=== PATIENT | female | born 1965 | race Caucasian/White ===

== ENCOUNTER 2019-11-29 20:48 | Emergency (ER) | payer SELFPAY ==
[2019-11-29 20:59] VITALS: BP 91/70; PULSE 82; RESP 16; TEMP 36.3; O2SAT 98; BMI 25.0
--- NOTE | 2019-11-29 21:11 | XR_ITS ---
WS: [id number] CHEST XRAY TECHNIQUE: Portable chest. CLINICAL INFORMATION: cough COMPARISON: February 21, 2019 FINDINGS: Heart: Normal cardiac silhouette. Lungs: Chronic emphysematous changes. No acute pulmonary infiltrates. Bones: Normal visualized bony structures. XR/XR chest 1V portable [id number] IMPRESSION: No acute chest findings
[2019-11-29 21:41] LABS: Basophils # 0.1 10^3/uL (0.0-0.1); Basophils % 0.7 %; Eosinophils # 0.3 10^3/uL (0.0-0.8); Eosinophils % 3.9 %; Hematocrit 33.8 % (37.0-47.0); Hemoglobin 11.1 g/dL (11.5-15.3); Lymphocytes # 3.1 10^3/uL (0.8-4.8); Lymphocytes % 40.7 %; Mean Corpuscular HGB Conc 32.8 g/dL (30.0-36.0); Mean Corpuscular Hemoglobin 29.8 pg (28.0-34.0); Mean Corpuscular Volume 90.6 fL (81-99); Mean Platelet Volume 11.1 fL (7.4-10.4); Monocytes # 0.6 10^3/uL (0.2-0.9); Monocytes % 7.7 %; Neutrophils # 3.6 10^3/uL (1.8-7.7); Neutrophils % 46.7 %; Nucleated Red Blood Cells % 0 %; Platelet Count 273 10^3/cmm (130-400); Red Blood Count 3.73 10^6/uL (4.1-5.3); Red Cell Distribution Width 13.2 % (12.1-15.1); White Blood Count 7.6 10^3/uL (4.0-10.0)
[2019-11-29 21:59] LABS: Alanine Aminotransferase 7 U/L (0-33); Albumin Level 4.5 g/dL (3.5-5.2); Alkaline Phosphatase 86 IU/L (35-105); Anion Gap 19.6 (5-19); Aspartate Amino Transferase 25 U/L (0-32); Blood Urea Nitrogen 31 mg/dL (6-20); Calcium 9.5 mg/Dl (8.6-10.0); Carbon Dioxide 24 mmol/L (22-29); Chloride 95 mmol/L (98-107); Globulin 2.5 g/dL (1.3-4.6); Glomerular Filtration Rate 27.8 mL/min (90-130); Glucose 135 mg/dL (74-109); Lactate (Lactic Acid level) 1.2 mmol/L (0.5-2.2); Potassium 4.6 mmol/L (3.5-5.1); Sodium 134 mmol/L (136-145); Total Bilirubin 0.4 mg/dL (0.15-1.2)
--- NOTE | 2019-11-30 00:26 | ED_ITS ---
HPI - General Adult General: Chief complaint: General Medical Stated complaint: LOW BP Time Seen by Provider: 11/29/19 23:44 History of Present Illness: HPI narrative: Patient complains of feeling weak for the last few days blood pressure is low at home. Came in by EMS. Patient has history of chronic methamphetamine and marijuana abuse. Patient is concerned asking why her blood pressure is low. MD complaint: weakness Onset (ago): day(s) Associated symptoms: Deny chest pain, dyspnea, headache(s), nausea, rash or vomiting Review of Systems General: Reports: 10 or more systems reviewed and unremarkable except in HPI and below (Low blood pressure) Const: Denies: fever, chills or body aches Eyes: Denies: change in vision or blurry vision ENMT: Denies: throat pain or nasal congestion Card: Denies: chest pain or shortness of breath on exertion Resp: Denies: shortness of breath, productive cough or non-productive cough GI: Denies: abdominal pain, nausea or vomiting Musc: Denies: extremity pain Skin/Breast: Denies: rash Neuro: Denies: headache Psych: Denies: anxiety or depression Blair/Lymph: Denies: easy bruising PFSH ED PFSH: Statuses (acute, chronic, etc) shown below reflect problem list status as previously entered and may not be historically accurate Social History Smoking and tobacco status: former smoker Physical Exam Narrative: EXAM NARRATIVE: Patient has etra pirymidial symptoms of sticking her tongue out while talking Const: COMMON NORMALS: no apparent distress, average body habitus and oriented x3 HENMT: COMMON NORMALS: normocephalic HEAD & SCALP: normal to inspection and normocephalic FACE & SINUS: normal facial exam Eye: COMMON NORMALS: conjunctivae normal GENERAL EYE: normal appearance of both eyes CONJUNCTIVA: Yes conjunctivae normal Neck/C-Spine: COMMON NORMALS: no JVD Chest: COMMONS NORMALS: inspection of chest normal Resp: COMMON NORMALS: normal respiratory effort and clear to auscultation bilaterally AUSCULTATION: clear to auscultation bilaterally Cardio: COMMON NORMALS: no JVD, regular rate and regular rhythm RATE: regular rate RHYTHM: regular rhythm GI: COMMON NORMALS: normal to inspection, nondistended, normoactive bowel sounds Extremity: COMMON NORMALS: normal to inspection and full ROM Neuro: COMMON NORMALS: oriented x3 Course Vital Signs: Vital signs: Vital Signs Temperature 97.4 F L 11/29/19 20:59 Pulse Rate 82 11/29/19 20:59 Respiratory Rate 16 11/29/19 20:59 Blood Pressure 91/70 11/29/19 20:59 Pulse Oximetry 98 11/29/19 20:59 [facility] - General Adult Lab Data: Labs: Lab Results 11/29/19 11/29/19 11/29/19 Range/Units 21:25 21:25 21:25 WBC 7.6 (4.0-10.0) 10^3/ uL RBC 3.73 L (4.1-5.3) 10^6/u L Hgb 11.1 L (11.5-15.3) g/dL Hct 33.8 L (37.0-47.0) % MCV 90.6 (81-99) fL MCH 29.8 (28.0-34.0) pg MCHC 32.8 (30.0-36.0) g/dL RDW 13.2 (12.1-15.1) % Plt Count 273 (130-400) 10^3/c mm MPV 11.1 H (7.4-10.4) fL Neut % (Auto) 46.7 % Lymph % (Auto) 40.7 % Burt % (Auto) 7.7 % Eos % (Auto) 3.9 % Baso % (Auto) 0.7 % Neut # (Auto) 3.6 (1.8-7.7) 10^3/u L Lymph # (Auto) 3.1 (0.8-4.8) 10^3/u L Burt # (Auto) 0.6 (0.2-0.9) 10^3/u L Eos # (Auto) 0.3 (0.0-0.8) 10^3/u L Baso # (Auto) 0.1 (0.0-0.1) 10^3/u L Nucleated RBC % (a uto) 0 % Nucleated RBCs # 0.0 /100WBC Sodium 134 L (136-145) mmol/L Potassium 4.6 (3.5-5.1) mmol/L Chloride 95 L (98-107) mmol/L Carbon Dioxide 24 (22-29) mmol/L Anion Gap 19.6 H (5-19) BUN 31 H (6-20) mg/dL Creatinine 1.9 H (0.5-0.9) mg/dL GFR Calculation 27.8 L (90-130) mL/min Glucose 135 H (74-109) mg/dL Lactate 1.2 (0.5-2.2) mmol/L Calcium 9.5 (8.6-10.0) mg/Dl Total Bilirubin 0.4 (0.15-1.2) mg/dL AST 25 (0-32) U/L ALT 7 (0-33) U/L Alkaline Phosphata se 86 (35-105) IU/L Total Protein 7.0 (6.6-8.7) g/dL Albumin 4.5 (3.5-5.2) g/dL Globulin 2.5 (1.3-4.6) g/dL Discharge Plan Discharge Patient Disposition: Home, Self-Care Condition: Stable Prescriptions: New ondansetron HCl [Zofran] 4 mg tablet 4 mg PO TID PRN (Reason: nausea and vomiting) 3 Days Qty: 12 RF: 0 Referrals: Robe Fischer [Family Provider] - Discharge Diet: Usual diet Discharge Activity: Resume usual activity Patient Instructions: Dehydration (ED) Activity Restrictions/Additional Instructions: Follow-up with medical provider as directed. Take medications as prescribed. Return to the ER are your medical provider if condition worsens. Read and understand discharge instructions. Coding Level of Care Code ED Manager Infrastructure for Jaren Awan
[2019-11-30 00:54] VITALS: BP 110/75; PULSE 85; RESP 18; O2SAT 97
[2019-11-30] MEDS: sodium chloride 0.9% 1,000 ML 999 ML IV (01:01)
[2019-11-30] MEDS: ondansetron 2 mg/ML SDV 2 mL 4 MG IVP (01:01)
[2019-11-30 02:08] VITALS: BP 115/61; PULSE 79; RESP 16; TEMP 36.7; O2SAT 100
== END 2019-11-30 02:10 | disposition home or self-care (01) ==
PROVIDERS: Emergency Medicine; Emergency Provider Nurse Practitioner Family; Family Provider Family Medicine
DX: I95.9 Hypotension, unspecified (principal); Z87.891 Personal history of nicotine dependence
CPT/HCPCS: 71045; 80053; 83605; 85025; 96360; 96374; 96375; 99281; J2405; J7030

== ENCOUNTER 2022-05-03 09:02 | Emergency (ER) | payer MEDICAID, SELFPAY ==
[2022-05-03 09:05] VITALS: BP 110/78; PULSE 71; RESP 14; TEMP 36.8; O2SAT 95; BMI 25.0
--- NOTE | 2022-05-03 09:18 | CT_ITS ---
WS: [id number] CT ABDOMEN AND PELVIS WITH CONTRAST HISTORY: Mid abdominal pain and low back pain with nausea and diarrhea. TECHNIQUE: Imaging performed of the abdomen and pelvis with IV contrast. Single phase imaging of the abdomen. Coronal and sagittal reformats are submitted. All CT scans at [facility] use at [address] one of these dose optimization techniques: automated exposure control; mA and/or kV adjustment per patient size (includes targeted exams where dose is matched to clinical indication); or iterative re construction. IV CONTRAST: Omnipaque 350; 75 mL IV. Oral contrast: No DLP: 1609.9 mGy.cm COMPARISON: 03/08/2017, 10/03/2016 Lower thorax: Lung bases are clear. Heart is normal size. Small hiatal hernia. Liver/biliary system: Normal size with no intrahepatic dilatation. Gallbladder: Gallbladder is very mildly overdistended with a small amount of fluid adjacent to the ga llbladder wall. No significant pericholecystic fluid. Common bile duct is top normal size at 6 mm. Pancreas: Normal size pancreas and pancreatic duct. No adjacent inflammation. Spleen: Normal size spleen. No mass or infarct. Adrenal glands: Normal. Right kidney: Normal size kidney. Minimal prominence of the renal pelvis. No obstruction or stone maria victoria ntified. No ureteral calcification. Left kidney: 14 mm cyst upper pole. Curvilinear calcification in the renal pelvis is probably a dista l renal artery aneurysm. May have been present on the prior study with continued calcification. Aneur ysm measures 8 mm diameter. Aorta: Mild atherosclerosis with no aneurysm. Lymphadenopathy: None. Free fluid: None. GI tract: Well-distended stomach. No small bowel obstruction. The appendix is normal. There are sever al diverticula in the descending and sigmoid colon with mild wall thickening. No significant amount o f inflammation but there is evidence for chronic diverticulosis with luminal narrowing. There are num erous diverticula. Some these diverticula are quite large. Abdominal wall: Unremarkable abdominal wall. No hernia. Pelvis: Nondistended urinary bladder. No free fluid or adenopathy. Stable mildly prominent LEFT ovary . Bones: Unremarkable. CT/CT abdomen pelvis w con* [id number] IMPRESSION: 1. Distal colon mucosal and submucosal thickening with numerous diverticula. N o evidence for diverticulitis. 2. Mildly hydropic gallbladder with pericholecystic fluid. No stones identifie d by CT. Recommend follow-up RIGHT upper quadrant ultrasound. Evaluate the gall bladder. The common bile duct is top normal size but not dilated. 3. Stable LEFT renal cyst. 4. Partially calcified distal LEFT renal artery aneurysm.
--- NOTE | 2022-05-03 09:19 | ECG_ITS ---
[facility] Test Date: 2022-05-03 Pat Name: Alisia Garcia Department: Room: Gender: Female Compliance Field Technician: : 1965 Requested By: Mau Mendez Order Number: [id number] Gavino MD: Trinh Nguyen M.D. Measurements Intervals [place] Rate: 66 P: 23 LA: 192 QRS: -1 QRSD: 96 T: 22 QT: 395 QTc: 414 Interpretive Statements SINUS RHYTHM VOLTAGE CRITERIA FOR LVH [MEETS CRITERIA IN ONE OF: R(aVL), S(V1), R(V5), R(V5/V6)+S(V1)] Compared to ECG 02/21/2019 21:53:11 No significant changes Electronically Signed On 05-03-2022 19:40:00 CDT by Trinh Nguyen M.D. [email or web address]
[2022-05-03 09:22] LABS: Basophils % 0.4 %; Eosinophils # 0.3 10^3/uL (0.0-0.8); Eosinophils % 4.2 %; Hematocrit 38.3 % (37.0-47.0); Hemoglobin 12.8 g/dL (11.5-15.3); Lymphocytes # 1.5 10^3/uL (0.8-4.8); Lymphocytes % 18.8 %; Mean Corpuscular HGB Conc 33.4 g/dL (30.0-36.0); Mean Corpuscular Hemoglobin 28.1 pg (28.0-34.0); Mean Corpuscular Volume 84.2 fl (81-99); Mean Platelet Volume 10.5 fL (7.4-10.4); Monocytes # 0.5 10^3/uL (0.2-0.9); Monocytes % 6.4 %; Neutrophils % 69.8 %; Nucleated Red Blood Cells % 0 %; Platelet Count 244 10^3/cmm (130-400); Red Blood Count 4.55 10^6/uL (4.1-5.3); Red Cell Distribution Width 14.1 % (12.1-15.1)
[2022-05-03 09:24] VITALS: RESP 15; O2SAT 96
[2022-05-03] MEDS: ondansetron 2 mg/ML SDV 2 mL 4 MG IVP (09:24)
[2022-05-03] MEDS: morphine 4 mg/mL SDV 1 mL IVP (09:24)
[2022-05-03] MEDS: sodium chloride 0.9% 1,000 ML 999 ML IV (09:25)
[2022-05-03 09:32] VITALS: BP 112/83; PULSE 85; RESP 20; O2SAT 94
--- NOTE | 2022-05-03 09:33 | PC.NURSE ---
EKG done at 0920 and shown to ER doctor
[2022-05-03 09:43] LABS: Alanine Aminotransferase 11 U/L (0-33); Albumin Level 4.3 g/dL (3.5-5.2); Alkaline Phosphatase 93 IU/L (35-105); Anion Gap 17.2 (5-19); Aspartate Amino Transferase 15 U/L (0-32); Blood Urea Nitrogen 11 mg/dL (6-20); Calcium 9.3 mg/dL (8.5-10.5); Carbon Dioxide 24 mmol/L (22-29); Chloride 100 mmol/L (98-107); Globulin 3.2 g/dL (1.3-4.6); Glomerular Filtration Rate 74.7 mL/min (90-130); Glucose 134 mg/dL (65-115); Lipase 19 U/L (13-60); Osmolality Calculated 285 mOsm/kg (285-295); Potassium 4.2 mmol/L (3.5-5.1); Sodium 137 mmol/L (136-145); Total Bilirubin 0.6 mg/dL (0.15-1.2); Total Protein 7.5 g/dL (6.6-8.7)
[2022-05-03 09:45] LABS: Troponin(5th) Baseline 6 ng/L (0-10)
--- NOTE | 2022-05-03 09:46 | PC.PHAR ---
pt states she takes care of her own medications-pt states she is no longer taking metformin 1000mg po bid pt states not taken in 3-4 months ext med history shows last filled 11/24/21 30d/s
[2022-05-03] MEDS: iohexol 350 mg/mL 100 mL Btl IV (10:06)
[2022-05-03 10:41] LABS: Blood Urine Neg (Negative); Glucose Urine UA Norm (Normal); Ketones Urine Negative (Negative); Protein Urine Neg (Negative); Specific Gravity, Urine 1.015 (1.005-1.030); Urine Appearance Clear (CLEAR); Urine Color Yellow (Yellow); pH Urine 5 (5-7)
[2022-05-03 10:42] LABS: Add Urine Culture? Yes; Add Urine Microscopic? YES; Bacteria Urine 4+ /hpf; Bilirubin Urine Neg (Negative); Leukocyte Esterase Urine Negative (Negative); Nitrate Urine Positive (Negative); Urobilinogen Urine Norm (Negative)
[2022-05-03 11:01] VITALS: BP 105/63; PULSE 63; RESP 12; O2SAT 98
[2022-05-03 11:23] VITALS: BP 114/79; PULSE 69; RESP 23; O2SAT 96
[2022-05-03 11:48] LABS: Troponin 5 2HR Delta 0 ABS# (0-10)
--- NOTE | 2022-05-03 14:39 | W.ED.ABDPA2 ---
HPI - Abdominal Pain General: Chief Complaint: Abdominal Pain Stated Complaint: abd pain Time Seen by Provider: 05/03/22 09:05 Source: patient Mode of arrival: EMS Limitations: no limitations History of Present Illness: 56-year-old female presents emergency room with abdominal pain pain for last 4 days with nausea vomiting and diarrhea. Was brought in by EMS given fentanyl in route. Refers pain to the left lower quadrant has had loose stools some small amount of blood streaking no significant amounts. Has had a low-grade subjective fever generally not felt well with poor appetite significant nausea. MD elicited complaint: abdominal pain Onset (ago): day(s) (4) Pain Consistency: constant Location: Diffuse Quality: cramping Exacerbating factors: nothing Relieving factors: nothing Associated Symptoms: Reports bloating, change in stool character, GI cramping, diarrhea, dyspepsia, nausea, poor appetite and vomiting; Denies anorexia, belching, change in bowel habits, chills, coffee ground emesis, constipation, dysuria, excessive flatus, fever(s), heartburn, hematochezia, hematuria, hematemesis, fecal incontinence, loose stools, melena and syncope Review of Systems Const: Denies: fever(s) or chills ENMT: Denies: throat pain, ear or mastoid pain, nasal discharge or nasal congestion Card: Denies: chest pain, palpitations, irregular heart rhythm, edema, swelling of feet/ankles or syncope Resp: Denies: dyspnea, productive cough or non-productive cough GI: Reports: abdominal pain, nausea, vomiting, diarrhea, bloating, GI cramping and change in stool character; Denies: hematemesis, coffee ground emesis, heartburn, constipation, belching, excessive flatus, fecal incontinence, change in bowel habits, hematochezia or melena : Denies: flank pain, difficulty voiding, dysuria, urinary frequency, urinary urgency or hematuria Skin/Breast: Denies: rash or pruritus PFSH ED PFSH: Medical History Hypertension Psychiatric care Surgical History H/O: hysterectomy History of Social History (Reviewed 05/11/22 @ 08:27 by SAMIA Perez Smoking and tobacco status: former smoker Quit status (tobacco): has quit using tobacco Year quit tobacco: 1985 Second hand smoke exposure: Yes Physical Exam Const: COMMON NORMALS: no acute distress GENERAL APPEARANCE: cooperative and comfortable ORIENTATION/CONSCIOUSNESS: Yes awake, Yes oriented to person, Yes oriented to place and Yes oriented to time HENMT: COMMON NORMALS: normocephalic, atraumatic and hearing grossly normal bilaterally HEAD & SCALP: normocephalic and atraumatic Neck/C-Spine: COMMON NORMALS: no JVD Resp: COMMON NORMALS: normal respiratory effort, No retractions, No use of accessory muscles and clear to auscultation bilaterally AUSCULTATION: clear to auscultation bilaterally Cardio: COMMON NORMALS: no JVD, regular rate, regular rhythm and No murmurs present (Cardio) RATE: regular rate RHYTHM: regular rhythm GI: COMMON NORMALS: Soft to palpation and No hepatosplenomegaly present AUSCULTATION: Yes normoactive bowel sounds PALPATION: Yes Soft to palpation, No Tenderness to palpation present (GI), No Guarding due to palpation present (GI) and Yes No hepatosplenomegaly present Extremity: COMMON NORMALS: normal to inspection, capillary refill normal, no clubbing, cyanosis or edema, no calf tenderness and no pedal edema Neuro: SENSORIUM/ORIENTATION: Yes oriented to person, Yes oriented to place and Yes oriented to time Skin: COMMON NORMALS: no rashes or lesions noted GENERAL SKIN EXAM: no rashes or lesions noted Course Vital Signs: Vital signs: Vital Signs Temperature 98.2 F 05/03/22 09:05 Pulse Rate 69 05/03/22 11:23 Respiratory Rate 23 H 05/03/22 11:23 Blood Pressure 114/79 05/03/22 11:23 Pulse Oximetry 96 05/03/22 11:23 MDM - Abdominal Pain Medical Decision Making Mild pericholecystic fluid on the CT however the lab was all normal set up. Recommend follow-up with primary care may need further imaging later date. Clear liquid diet we will start on antibiotics. If symptoms worsen return Medical Records I reviewed the patient's medical records. Lab Data I reviewed the patient's lab results. : 05/03/22 09:10 05/03/22 09:10 Labs/Radiology: Radiology Impressions Abdomen/Pelvis CT 05/03/22 09:18 IMPRESSION: 1. Distal colon mucosal and submucosal thickening with numerous diverticula. No evidence for diverticulitis. 2. Mildly hydropic gallbladder with pericholecystic fluid. No stones identified by CT. Recommend follow-up RIGHT upper quadrant ultrasound. Evaluate the gallbladder. The common bile duct is top normal size but not dilated. 3. Stable LEFT renal cyst. 4. Partially calcified distal LEFT renal artery aneurysm. Laboratory Results WBC 8.0 10^3/uL (4.0-10.0) 05/03/22 09:10 RBC 4.55 10^6/uL (4.1-5.3) 05/03/22 09:10 Hgb 12.8 g/dL (11.5-15.3) 05/03/22 09:10 Hct 38.3 % (37.0-47.0) 05/03/22 09:10 MCV 84.2 fl (81-99) 05/03/22 09:10 MCH 28.1 pg (28.0-34.0) 05/03/22 09:10 MCHC 33.4 g/dL (30.0-36.0) 05/03/22 09:10 RDW 14.1 % (12.1-15.1) 05/03/22 09:10 Plt Count 244 10^3/cmm (130-400) 05/03/22 09:10 MPV 10.5 fL (7.4-10.4) H 05/03/22 09:10 Neut % (Auto) 69.8 % 05/03/22 09:10 Lymph % (Auto) 18.8 % 05/03/22 09:10 [place] % (Auto) 6.4 % 05/03/22 09:10 Eos % (Auto) 4.2 % 05/03/22 09:10 Baso % (Auto) 0.4 % 05/03/22 09:10 Neut # (Auto) 5.60 10^3/uL (1.8-7.7) 05/03/22 09:10 Lymph # (Auto) 1.5 10^3/uL (0.8-4.8) 05/03/22 09:10 [place] # (Auto) 0.5 10^3/uL (0.2-0.9) 05/03/22 09:10 Eos # (Auto) 0.3 10^3/uL (0.0-0.8) 05/03/22 09:10 Baso # (Auto) 0.0 10^3/uL (0.0-0.1) 05/03/22 09:10 Nucleated RBC % (auto) 0 % 05/03/22 09:10 Nucleated RBCs # 0.0 /100WBC 05/03/22 09:10 Sodium 137 mmol/L (136-145) 05/03/22 09:10 Potassium 4.2 mmol/L (3.5-5.1) 05/03/22 09:10 Chloride 100 mmol/L (98-107) 05/03/22 09:10 Carbon Dioxide 24 mmol/L (22-29) 05/03/22 09:10 Anion Gap 17.2 (5-19) 05/03/22 09:10 BUN 11 mg/dL (6-20) 05/03/22 09:10 Creatinine 0.8 mg/dL (0.5-0.9) 05/03/22 09:10 GFR Calculation 74.7 mL/min (90-130) L 05/03/22 09:10 Glucose 134 mg/dL (65-115) H 05/03/22 09:10 Calculated Osmolality 285 mOsm/kg (285-295) 05/03/22 09:10 Calcium 9.3 mg/dL (8.5-10.5) 05/03/22 09:10 Total Bilirubin 0.6 mg/dL (0.15-1.2) 05/03/22 09:10 AST 15 U/L (0-32) 05/03/22 09:10 ALT 11 U/L (0-33) 05/03/22 09:10 Alkaline Phosphatase 93 IU/L (35-105) 05/03/22 09:10 Troponin T Baseline 6 ng/L (0-10) 05/03/22 09:01 Troponin T 120 Minute 6.00 ng/L (0-10) 05/03/22 11:08 Delta Troponin T 0 ABS# (0-10) 05/03/22 11:08 Total Protein 7.5 g/dL (6.6-8.7) 05/03/22 09:10 Albumin 4.3 g/dL (3.5-5.2) 05/03/22 09:10 Globulin 3.2 g/dL (1.3-4.6) 05/03/22 09:10 Lipase 19 U/L (13-60) 05/03/22 09:10 Urine Color Yellow (Yellow) 05/03/22 09:55 Urine Appearance Clear (CLEAR) 05/03/22 09:55 Urine pH 5 (5-7) 05/03/22 09:55 Ur Specific [place] 1.015 (1.005-1.030) 05/03/22 09:55 Urine Protein Neg (Negative) 05/03/22 09:55 Urine Glucose (UA) Norm (Normal) 05/03/22 09:55 Urine Ketones Negative (Negative) 05/03/22 09:55 Urine Blood Neg (Negative) 05/03/22 09:55 Urine Nitrate Positive (Negative) H 05/03/22 09:55 Urine Bilirubin Neg (Negative) 05/03/22 09:55 Urine Urobilinogen Norm mg/dL (Negative) 05/03/22 09:55 Ur Leukocyte Esterase Negative (Negative) 05/03/22 09:55 Urine RBC None /hpf (0-2) 05/03/22 09:55 Urine WBC 5-10 /hpf (0-5) H 05/03/22 09:55 Ur Squamous Epith Cells 5-10 /hpf (0-5) H 05/03/22 09:55 Amorphous Sediment Not Reportable 05/03/22 09:55 Urine Bacteria 4+ /hpf (NONE) H 05/03/22 09:55 Discharge Plan Discharge Patient Disposition: Home Clinical Impression: Colitis Condition: Stable Prescriptions: New metronidazole 500 mg tablet 500 mg PO Q12H 10 Days Qty: 20 0RF ciprofloxacin HCl 500 mg tablet 500 mg PO Q12H Qty: 20 0RF promethazine 25 mg tablet 25 mg PO Q6H PRN (Reason: nausea and vomiting) Qty: 20 0RF No Action fluoxetine [Prozac] 20 mg capsule 20 mg PO DAILY Qty: 30 1RF trazodone 50 mg tablet 100 mg PO .HS PRN (Reason: insomnia) Qty: 60 1RF multivitamin Tablet 1 tab PO DAILY 0RF Flexeril 10 mg Tablet 10 mg PO BID PRN (Reason: Muscle Spasm) 0RF Protonix 20 mg Tablet,Delayed Release (Dr/Ec) 20 mg PO QAM 0RF gabapentin 300 mg Capsule 300 mg PO TID 0RF lovastatin 20 mg Tablet 20 mg PO BEDTIME 0RF oxybutynin chloride 5 mg Tablet See Rx Instructions .ROUTE .COMPLEX 0RF Rx Instructions: 5mg po qam and 10mg po bedtime lisinopril 40 mg tablet 20 mg PO BID 0RF naproxen 500 mg tablet 500 mg PO BID PRN (Reason: Pain) 0RF metoprolol tartrate 25 mg tablet 25 mg PO BID 0RF vitamin E 1 cap PO QAM 0RF aspirin 81 mg tablet,delayed release (DR/EC) 81 mg PO DAILY 0RF Discharge Orders: Discharge ED (Routine); Ordered 05/03/22 Ordered By: Mau Lucas Referrals: Ned Danielle [Primary Care Provider] - Discharge Diet: Clear Liquid Discharge Activity: Increase activity as tolerated Patient Instructions: Opioid Safety Activity Restrictions/Additional Instructions: Liquid diet x 2-3 days and advance as tolerated Coding Level of Care Code ED Woven Label Designer for Jaren Awan
== END 2022-05-03 11:27 | disposition home or self-care (01) ==
PROVIDERS: Emergency Provider Family Medicine; PCP Nurse Practitioner Family
DX: K52.9 Noninfective gastroenteritis and colitis, unspecified (principal); I10 Essential (primary) hypertension
CPT/HCPCS: 74177; 80053; 81001; 83690; 84484; 85025; 87077; 87086; 87186; 93005; 96361; 96374; 96375; 99284; J2270; J2405; J7030; Q9967

== ENCOUNTER 2022-05-04 18:00 | Emergency (ER) | payer MEDICAID, SELFPAY ==
[2022-05-04 18:03] VITALS: BP 132/84; PULSE 79; RESP 12; TEMP 36.8; O2SAT 99; BMI 27.4
--- NOTE | 2022-05-04 18:20 | ED_ITS ---
Documented by User: IKE Mcdowell 05/04/22 22:42 HPI - Abdominal Pain General: Chief Complaint: Abdominal Pain Stated Complaint: abd pains Time Seen by Provider: 05/04/22 18:13 History of Present Illness: Patient is a 56-year-old female comes to the ED wi th abdominal pain and nausea. Patient was seen here in the ED for same complaint yesterday May 03. Yesterday she was diagnosed with colitis and sent home with a prescription for Cipro, Flagyl and promethazine. She only had enough money to pay for the antibiotics so she has been taking her Cipro and Flagyl and was unable to get the promethazine at the pharmacy due to cost. Pain started this morning after she ate an egg and drink some milk. Pain is located in the right upper quadrant of the abdomen and radiates to her back. She describes as a constant aching pain she rates it a 10 out of 10. She endorses having a lot of nausea since this morning but has not had any episodes of emesis. She did take some Tylenol earlier today to help with pain. Eating food worsens pain, but denies any relieving factors. She did have some diarrhea that started approximately 6 days ago but it has since resolved and she has not had any diarrhea for the past 2 days. Denies any fevers, chills, chest pain, shortness of breath, dysuria, hematuria. Associated Symptoms: Reports nausea; Denies chills, constipation, diarrhea, dysuria, fever(s), hematochezia, hematu gladis and vomiting Review of Systems Const: Denies: fever(s), chills or fatigue Eyes: Denies: change in vision or eye discomfort ENMT: Denies: throat pain, odynophagia, nasal discharge or nasal congestion Card: Denies: chest pain, palpitations, edema, swelling of feet/ankles, dyspnea on exertion or orthopnea Resp: Denies: dyspnea, productive cough or non-productive cough GI: Reports: abdominal pain and nausea; Denies: vomiting, diarrhea, constipation or hematochezia : Denies: flank pain, dysuria or hematuria Musc: Denies: neck pain, back pain or extremity swelling Skin/Breast: Denies: rash or new lesions Neuro: Denies: headache(s), numbness in extremities or weakness in extremities PFSH ED PFSH: Medical History Hypertension Psychiatric care Surgical History H/O: hysterectomy History of Social History Smoking and tobacco status: former smoker Quit status (tobacco): has quit using tobacco Year quit tobacco: 1985 Second hand smoke exposure: Yes Physical Exam Const: COMMON NORMALS: patient oriented x3 and alert GENERAL APPEARANCE: cooperative HENMT: COMMON NORMALS: normocephalic HEAD & SCALP: normocephalic MOUTH: Normal oral and palatal mucosa present THROAT: posterior oropharynx normal and uvula midline Eye: COMMON NORMALS: Equal, round and reactive pupils present and conjunctivae normal CONJUNCTIVA: Yes conjunctivae normal PUPIL: Yes Equal, round and reactive pupils present Neck/C-Spine: COMMON NORMALS: supple GENERAL: Yes normal visual inspection Resp: COMMON NORMALS: normal respiratory effort, No retractions, No use of accessory muscles and clear to auscultation bilaterally AUSCULTATION: clear to auscultation bilaterally Cardio: COMMON NORMALS: regular rate, regular rhythm, S1 normal heart sound present, S2 normal heart sound present, No gallops present (Cardio), No clicks present (Cardio), No murmurs present (Cardio) and Peripheral pulses 2+ throughout RATE: regular rate RHYTHM: regular rhythm HEART SOUNDS: S1 normal heart sound present and S2 normal heart sound present PERIPHERAL PULSES: Peripheral pulses 2+ throughout GI: COMMON NORMALS: Normal to inspection, nondistended, normoactive bowel sounds present, Soft to palpation and no masses PALPATION: Yes Soft to palpation and Yes Tenderness to palpation present (GI) Details: RUQ : COMMON NORMALS: Yes no CVA tenderness BLADDER/KIDNEY EXAM: Yes no CVA tenderness Back/Pelvis: COMMON NORMALS: no CVA tenderness Extremity: COMMON NORMALS: normal to inspection Neuro: COMMON NORMALS: patient oriented x3 SENSORIUM/ORIENTATION: Yes alert GAIT: Yes Normal gait present Skin: GENERAL SKIN EXAM: dry skin Course Reevaluation(s): Reevaluation #1: Patient's symptoms were controlled with IV fluids morphine and nausea meds. She was feeling better and she was stable for discharge home. Time: 21:10 Vital Signs: Vital signs: Vital Signs Temperature 98.2 F 05/04/22 18:03 Pulse Rate 97 05/04/22 21:46 Respiratory Rate 14 05/04/22 21:46 Blood Pressure 119/73 05/04/22 21:46 Pulse Oximetry 97 05/04/22 21:46 MDM - Abdominal Pain Medical Decision Making Patient is a 56-year-old female comes to the ED with abdominal pain and nausea. Patient was seen here in the ED for same complaint yesterday May 03. Yesterday she was diagnosed with colitis and sent home with a prescription for Cipro, Flagyl and promethazine. She only had enough money to pay for the antibiotics so she has been taking her Cipro and Flagyl and was unable to get the promethazine at the pharmacy due to cost. Pain started this morning after she ate an egg and drink some milk. Pain is located in the right upper quadrant of the abdomen and radiates to her back. She describes as a constant aching pain she rates it a 10 out of 10. She endorses having a lot of nausea since this morning but has not had any episodes of emesis. Vitals are stable. Exam of patient shows some right upper quadrant abdominal tenderness and the rest of exam is benign. CBC and CMP were unremarkable. Liver function labs and total bilirubin were all normal. UA unremarkable. Ultrasound of the gallbladder showed no stones or sludge noted. Gallbladder wall at the upper limits of normal. CBD nonobstructed. Patient's symptoms were controlled after IV fluids, nausea meds and pain meds. She was stable for discharge home. I placed order with case management for patient be referred to general surgery for follow-up on right upper quadrant abdominal pain. Patient was diagnosed with biliary colic and was discharged home with a prescription for Warren for pain. She was told to continue taking her previously prescribed promethazine and antibiotics. Return to ED precautions given. Follow-up with PCP within the next week for reevaluation. Patient understood agree with plan. Lab Data I reviewed the patient's lab results. : 05/04/22 18:35 05/04/22 18:35 Labs/Radiology: Radiology Impressions Gallbladder Ultrasound 05/04/22 18:21 IMPRESSION: 1. No gallstones or intraluminal gallbladder sludge. No pericholecystic fluid. The gallbladder wall is at the upper limits of normal in thickness however, which could suggest early or mild cholecystitis. Recommend clinical correlation. 2. Visualized common bile duct is mildly dilated measuring 8.1 mm. Laboratory Results WBC 7.3 10^3/uL (4.0-10.0) 05/04/22 18:35 RBC 4.45 10^6/uL (4.1-5.3) 05/04/22 18:35 Hgb 12.7 g/dL (11.5-15.3) 05/04/22 18:35 Hct 37.8 % (37.0-47.0) 05/04/22 18:35 MCV 84.9 fl (81-99) 05/04/22 18:35 MCH 28.5 pg (28.0-34.0) 05/04/22 18: MCHC 33.6 g/dL (30.0-36.0) 05/04/22 18:35 RDW 14.1 % (12.1-15.1) 05/04/22 18:35 Plt Count 262 10^3/cmm (130-400) 05/04/22 18:35 MPV 10.7 fL (7.4-10.4) H 05/04/22 18:35 Neut % (Auto) 59.3 % 05/04/22 18:35 Lymph % (Auto) 27.3 % 05/04/22 18:35 Coles % (Auto) 7.6 % 05/04/22 18:35 Eos % (Auto) 4.8 % 05/04/22 18:35 Baso % (Auto) 0.6 % 05/04/22 18:35 Neut # (Auto) 4.30 10^3/uL (1.8-7.7) 05/04/22 18:35 Lymph # (Auto) 2.0 10^3/uL (0.8-4.8) 05/04/22 18:35 Coles # (Auto) 0.6 10^3/uL (0.2-0.9) 05/04/22 18:35 Eos # (Auto) 0.4 10^3/uL (0.0-0.8) 05/04/22 18:35 Baso # (Auto) 0.0 10^3/uL (0.0-0.1) 05/04/22 18:35 Nucleated RBC % (auto) 0 % 05/04/22 18:35 Nucleated RBCs # 0.0 /100WBC 05/04/22 18:35 Sodium 138 mmol/L (136-145) 05/04/22 18:35 Potassium 4.5 mmol/L (3.5-5.1) 05/04/22 18:35 Chloride 99 mmol/L (98-107) 05/04/22 18:35 Carbon Dioxide 26 mmol/L (22-29) 05/04/22 18:35 Anion Gap 17.5 (5-19) 05/04/22 18:35 BUN 14 mg/dL (6-20) 05/04/22 18:35 Creatinine 0.8 mg/dL (0.5-0.9) 05/04/22 18:35 GFR Calculation 74.7 mL/min (90-130) L 05/04/22 18:35 Glucose 146 mg/dL (65-115) H 05/04/22 18:35 Calculated Osmolality 289 mOsm/kg (285-295) 05/04/22 18:35 Calcium 9.0 mg/dL (8.5-10.5) 05/04/22 18:35 Total Bilirubin 0.5 mg/dL (0.15-1.2) 05/04/22 18:35 AST 20 U/L (0-32) 05/04/22 18:35 ALT 12 U/L (0-33) 05/04/22 18:35 Alkaline Phosphatase 95 IU/L (35-105) 05/04/22 18:35 Total Protein 7.8 g/dL (6.6-8.7) 05/04/22 18:35 Albumin 4.4 g/dL (3.5-5.2) 05/04/22 18:35 Globulin 3.4 g/dL (1.3-4.6) 05/04/22 18:35 Lipase 20 U/L (13-60) 05/04/22 18:35 Urine Color Yellow (Yellow) 05/04/22 19:40 Urine Appearance Clear (CLEAR) 05/04/22 19:40 Urine pH 5 (5-7) 05/04/22 19:40 Ur Specific [place] 1.020 (1.005-1.030) 05/04/22 19:40 Urine Protein Neg (Negative) 05/04/22 19:40 Urine Glucose (UA) Norm (Normal) 05/04/22 19:40 Urine Ketones Negative (Negative) 05/04/22 19:40 Urine Blood Neg (Negative) 05/04/22 19:40 Urine Nitrate Negative (Negative) 05/04/22 19:40 Urine Bilirubin Neg (Negative) 05/04/22 19:40 Urine Urobilinogen Norm mg/dL (Negative) 05/04/22 19:40 Ur Leukocyte Esterase Negative (Negative) 05/04/22 19:40 Discharge Plan Discharge Patient Disposition: Home Clinical Impression: Biliary colic Condition: Stable Prescriptions: No Action fluoxetine [Prozac] 20 mg capsule 20 mg PO DAILY Qty: 30 1RF trazodone 50 mg tablet 100 mg PO .HS PRN (Reason: insomnia) Qty: 60 1RF multivitamin Tablet 1 tab PO DAILY 0RF Flexeril 10 mg Tablet 10 mg PO BID PRN (Reason: Muscle Spasm) 0RF Protonix 20 mg Tablet,Delayed Release (Dr/Ec) 20 mg PO QAM 0RF gabapentin 300 mg Capsule 300 mg PO TID 0RF lovastatin 20 mg Tablet 20 mg PO BEDTIME 0RF oxybutynin chloride 5 mg Tablet See Rx Instructions .ROUTE .COMPLEX 0RF Rx Instructions: 5mg po qam and 10mg po bedtime lisinopril 40 mg tablet 20 mg PO BID 0RF naproxen 500 mg tablet 500 mg PO BID PRN (Reason: Pain) 0RF metoprolol tartrate 25 mg tablet 25 mg PO BID 0RF vitamin E 1 cap PO QAM 0RF metronidazole 500 mg tablet 500 mg PO Q12H 10 Days Qty: 20 0RF ciprofloxacin HCl 500 mg tablet 500 mg PO Q12H Qty: 20 0RF promethazine 25 mg tablet 25 mg PO Q6H PRN (Reason: nausea and vomiting) Qty: 20 0RF aspirin 81 mg tablet,delayed release (DR/EC) 81 mg PO DAILY 0RF Discharge Orders: Discharge ED (Routine); Ordered 05/04/22 Ordered By: Jung Enciso Referrals: Ned Danielle [Primary Care Provider] - Discharge Diet: Advance as tolerated and Clear Liquid Discharge Activity: Increase activity as tolerated Patient Instructions: Biliary Colic (ED), Opioid Safety Activity Restrictions/Additional Instructions: Follow-up with medical provider as directed. 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 Take medications as prescribed. Do a clear liquid diet for the next 24 hours and slowly advance diet as tolerated. Return to the ER or your medical provider if condition worsens. Please read and understand discharge instructions. Thank you for choosing [facility] for your healthcare needs today. Please realize this is an emergency room and that we are providing you with a medical screening exam and this may not be complete and all inclusive of all the testing and or work up that you may need to determine your ailment or severity of your illness. It is very important that you follow up as instructed or that you return to the Emergency Department should you have concerns or if your condition changes or worsens in any way. Coding Level of Care Code ED Hearing Health Technician for Chg Fwd Exam Comprehensive Documented by User: Chema Lyman MD 05/05/22 03:15 HPI - Abdominal Pain General: Chief Complaint: Abdominal Pain Stated Complaint: abd pains Time Seen by Provider: 05/04/22 18:13 [facility] ED PFSH: Medical History Hypertension Psychiatric care Surgical History H/O: hysterectomy History of Social History Smoking and tobacco status: former smoker Quit status (tobacco): has quit using tobacco Year quit tobacco: 1985 Second hand smoke exposure: Yes Course Vital Signs: Vital signs: Vital Signs Temperature 98.2 F 05/04/22 18:03 Pulse Rate 97 05/04/22 21:46 Respiratory Rate 14 05/04/22 21:46 Blood Pressure 119/73 05/04/22 21:46 Pulse Oximetry 97 05/04/22 21:46 MDM - Abdominal Pain Medical Decision Making Patient is a 56-year-old female comes to the ED with abdominal pain and nausea. Patient was seen here in the ED for same complaint yesterday May 03. Yesterday she was diagnosed with colitis and sent home with a prescription for Cipro, Flagyl and promethazine. She only had enough money to pay for the antibiotics so she has been taking her Cipro and Flagyl and was unable to get the promethazine at the pharmacy due to cost. Pain started this morning after she ate an egg and drink some milk. Pain is located in the right upper quadrant of the abdomen and radiates to her back. She describes as a constant aching pain she rates it a 10 out of 10. She endorses having a lot of nausea since this morning but has not had any episodes of emesis. Vitals are stable. Exam of patient shows some right upper quadrant abdominal tenderness and the rest of exa m is benign. CBC and CMP were unremarkable. Liver function labs and total bilirubin were all normal. UA unremarkable. Ultrasound of the gallbladder showed no stones or sludge noted. Gallbladder wall at the upper limits of normal. CBD nonobstructed. Patient's symptoms were controlled after IV fluids, nausea meds and pain meds. She was stable for discharge home. I placed order with case management for patient be referred to general surgery for follow-up on right upper quadrant abdominal pain. Patient was diagnosed with biliary colic and was discharged home with a prescription for Warren for pain. She was told to continue taking her previously prescribed promethazine and antibiotics. Return to ED precautions given. Follow-up with PCP within the next week for reevaluation. Patient understood agree with plan. I discussed this case with IKE Mcdowell. I have reviewed labs, imaging, and documentation. Chema Lyman MD Emergency Medicine Lab Data : 05/04/22 18:35 05/04/22 18:35 Labs/Radiology: Radiology Impressions Gallbladder Ultrasound 05/04/22 18:21 IMPRESSION: 1. No gallstones or intraluminal gallbladder sludge. No pericholecystic fluid. The gallbladder wall is at the upper limits of normal in thickness however, which could suggest early or mild cholecystitis. Recommend clinical correlation. 2. Visualized common bile duct is mildly dilated measuring 8.1 mm. Laboratory Results WBC 7.3 10^3/uL (4.0-10.0) 05/04/22 18:35 RBC 4.45 10^6/uL (4.1-5.3) 05/04/22 18:35 Hgb 12.7 g/dL (11.5-15.3) 05/04/22 18:35 Hct 37.8 % (37.0-47.0) 05/04/22 18: MCV 84.9 fl (81-99) 05/04/22 18:35 MCH 28.5 pg (28.0-34.0) 05/04/22 18: MCHC 33.6 g/dL (30.0-36.0) 05/04/22 18: RDW 14.1 % (12.1-15.1) 05/04/22 18:35 Plt Count 262 10^3/cmm (130-400) 05/04/22 18: MPV 10.7 fL (7.4-10.4) H 05/04/22 18:35 Neut % (Auto) 59.3 % 05/04/22 18:35 Lymph % (Auto) 27.3 % 05/04/22 18:35 Coles % (Auto) 7.6 % 05/04/22 18:35 Eos % (Auto) 4.8 % 05/04/22 18:35 Baso % (Auto) 0.6 % 05/04/22 18:35 Neut # (Auto) 4.30 10^3/uL (1.8-7.7) 05/04/22 18:35 Lymph # (Auto) 2.0 10^3/uL (0.8-4.8) 05/04/22 18:35 Coles # (Auto) 0.6 10^3/uL (0.2-0.9) 05/04/22 18: Eos # (Auto) 0.4 10^3/uL (0.0-0.8) 05/04/22 18:35 Baso # (Auto) 0.0 10^3/uL (0.0-0.1) 05/04/22 18: Nucleated RBC % (auto) 0 % 05/04/22 18: Nucleated RBCs # 0.0 /100WBC 05/04/22 18:35 Sodium 138 mmol/L (136-145) 05/04/22 18: Potassium 4.5 mmol/L (3.5-5.1) 05/04/22 18:35 Chloride 99 mmol/L (98-107) 05/04/22 18:35 Carbon Dioxide 26 mmol/L (22-29) 05/04/22 18:35 Anion Gap 17.5 (5-19) 05/04/22 18:35 BUN 14 mg/dL (6-20) 05/04/22 18:35 Creatinine 0.8 mg/dL (0.5-0.9) 05/04/22 18:35 GFR Calculation 74.7 mL/min (90-130) L 05/04/22 18:35 Glucose 146 mg/dL (65-115) H 05/04/22 18:35 Calculated Osmolality 289 mOsm/kg (285-295) 05/04/22 18:35 Calcium 9.0 mg/dL (8.5-10.5) 05/04/22 18:35 Total Bilirubin 0.5 mg/dL (0.15-1.2) 05/04/22 18:35 AST 20 U/L (0-32) 05/04/22 18:35 ALT 12 U/L (0-33) 05/04/22 18:35 Alkaline Phosphatase 95 IU/L (35-105) 05/04/22 18:35 Total Protein 7.8 g/dL (6.6-8.7) 05/04/22 18:35 Albumin 4.4 g/dL (3.5-5.2) 05/04/22 18:35 Globulin 3.4 g/dL (1.3-4.6) 05/04/22 18:35 Lipase 20 U/L (13-60) 05/04/22 18:35 Urine Color Yellow (Yellow) 05/04/22 19:40 Urine Appearance Clear (CLEAR) 05/04/22 19:40 Urine pH 5 (5-7) 05/04/22 19:40 Ur Specific [place] 1.020 (1.005-1.030) 05/04/22 19:40 Urine Protein Neg (Negative) 05/04/22 19:40 Urine Glucose (UA) Norm (Normal) 05/04/22 19:40 Urine Ketones Negative (Negative) 05/04/22 19:40 Urine Blood Neg (Negative) 05/04/22 19:40 Urine Nitrate Negative (Negative) 05/04/22 19:40 Urine Bilirubin Neg (Negative) 05/04/22 19:40 Urine Urobilinogen Norm mg/dL (Negative) 05/04/22 19:40 Ur Leukocyte Esterase Negative (Negative) 05/04/22 19:40 Discharge Plan Discharge Patient Disposition: Home Clinical Impression: Biliary colic Condition: Stable Prescriptions: No Action fluoxetine [Prozac] 20 mg capsule 20 mg PO DAILY Qty: 30 1RF trazodone 50 mg tablet 100 mg PO .HS PRN (Reason: insomnia) Qty: 60 1RF multivitamin Tablet 1 tab PO DAILY 0RF Flexeril 10 mg Tablet 10 mg PO BID PRN (Reason: Muscle Spasm) 0RF Protonix 20 mg Tablet,Delayed Release (Dr/Ec) 20 mg PO QAM 0RF gabapentin 300 mg Capsule 300 mg PO TID 0RF lovastatin 20 mg Tablet 20 mg PO BEDTIME 0RF oxybutynin chloride 5 mg Tablet See Rx Instructions .ROUTE .COMPLEX 0RF Rx Instructions: 5mg po qam and 10mg po bedtime lisinopril 40 mg tablet 20 mg PO BID 0RF naproxen 500 mg tablet 500 mg PO BID PRN (Reason: Pain) 0RF metoprolol tartrate 25 mg tablet 25 mg PO BID 0RF vitamin E 1 cap PO QAM 0RF metronidazole 500 mg tablet 500 mg PO Q12H 10 Days Qty: 20 0RF ciprofloxacin HCl 500 mg tablet 500 mg PO Q12H Qty: 20 0RF promethazine 25 mg tablet 25 mg PO Q6H PRN (Reason: nausea and vomiting) Qty: 20 0RF aspirin 81 mg tablet,delayed release (DR/EC) 81 mg PO DAILY 0RF Discharge Orders: Discharge ED (Routine); Ordered 05/04/22 Ordered By: Jung Enciso Referrals: Ned Danielle [Primary Care Provider] - Discharge Diet: Advance as tolerated and Clear Liquid Discharge Activity: Increase activity as tolerated Patient Instructions: Biliary Colic (ED), Opioid Safety Activity Restrictions/Additional Instructions: Follow-up with medical provider as directed. 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 Take medications as prescribed. Do a clear liquid diet for the next 24 hours and slowly advance diet as tolerated. Return to the ER or your medical provider if condition worsens. Please read and understand discharge instructions. Thank you for choosing [facility] for your healthcare needs today. Please realize this is an emergency room and that we are providing you with a medical screening exam and this may not be complete and all inclusive of all the testing and or work up that you may need to determine your ailment or severity of your illness. It is very important that you follow up as instructed or that you return to the Emergency Department should you have concerns or if your condition changes or worsens in any way. Coding Level of Care Code ED Hearing Health Technician for Jaren Awan Exam Comprehensive
--- NOTE | 2022-05-04 18:21 | USR_ITS ---
PROCEDURE INFORMATION: Exam: US Abdomen, Limited; Right Upper Quadrant Exam date and time: 05/04/2022 6:53 PM Age: 56 years old Clinical indication: Nausea and vomiting; Abdominal pain; Generalized; Additional info: Right upper quadrant abdominal pain and nausea TECHNIQUE: Imaging protocol: US abdomen. Real time ultrasound with image documentation. Limited exam focused on the right upper quadrant. COMPARISON: CT abdomen pelvis w con* [id number] 05/03/2022 10:07 AM FINDINGS: Liver: The liver is unremarkable. Gallbladder: No gallstones or intraluminal gallbladder sludge. No pericholecystic fluid. The gallbladder wall is at the upper limits of normal in thickness however, which could suggest early or mild cholecystitis. Biliary ducts: Visualized common bile duct is mildly dilated measuring 8.1 mm. Pancreas: Incomplete visualization of the pancreas due to overlying bowel gas. Visualized portions of the pancreas are unremarkable. Right kidney: The right kidney is unremarkable. Inferior vena cava: Visualized IVC is unremarkable. Portal venous: Hepatopetal flow in the portal vein. Intraperitoneal space: No ascites. US/US gall bladder [id number] IMPRESSION: 1. No gallstones or intraluminal gallbladder sludge. No pericholecystic fluid. The gallbladder wall is at the upper limits of normal in thickness however, which could suggest early or mild cholecystitis. Recommend clinical correlation. 2. Visualized common bile duct is mildly dilated measuring 8.1 mm.
[2022-05-04 18:36] VITALS: BP 137/82; O2SAT 97
[2022-05-04] MEDS: sodium chloride 0.9% 1,000 ML 999 ML IV (18:36)
[2022-05-04 18:37] VITALS: RESP 15
[2022-05-04] MEDS: morphine 4 mg/mL SDV 1 mL IVP ×2 (18:37→20:35)
[2022-05-04] MEDS: ondansetron 2 mg/ML SDV 2 mL 4 MG IVP (18:37)
[2022-05-04 18:47] LABS: Basophils % 0.6 %; Eosinophils # 0.4 10^3/uL (0.0-0.8); Eosinophils % 4.8 %; Hematocrit 37.8 % (37.0-47.0); Hemoglobin 12.7 g/dL (11.5-15.3); Lymphocytes % 27.3 %; Mean Corpuscular HGB Conc 33.6 g/dL (30.0-36.0); Mean Corpuscular Hemoglobin 28.5 pg (28.0-34.0); Mean Corpuscular Volume 84.9 fl (81-99); Mean Platelet Volume 10.7 fL (7.4-10.4); Monocytes # 0.6 10^3/uL (0.2-0.9); Monocytes % 7.6 %; Neutrophils % 59.3 %; Nucleated Red Blood Cells % 0 %; Platelet Count 262 10^3/cmm (130-400); Red Blood Count 4.45 10^6/uL (4.1-5.3); Red Cell Distribution Width 14.1 % (12.1-15.1); White Blood Count 7.3 10^3/uL (4.0-10.0)
[2022-05-04 19:01] LABS: Alanine Aminotransferase 12 U/L (0-33); Albumin Level 4.4 g/dL (3.5-5.2); Alkaline Phosphatase 95 IU/L (35-105); Anion Gap 17.5 (5-19); Aspartate Amino Transferase 20 U/L (0-32); Blood Urea Nitrogen 14 mg/dL (6-20); Carbon Dioxide 26 mmol/L (22-29); Chloride 99 mmol/L (98-107); Globulin 3.4 g/dL (1.3-4.6); Glomerular Filtration Rate 74.7 mL/min (90-130); Glucose 146 mg/dL (65-115); Lipase 20 U/L (13-60); Osmolality Calculated 289 mOsm/kg (285-295); Potassium 4.5 mmol/L (3.5-5.1); Sodium 138 mmol/L (136-145); Total Bilirubin 0.5 mg/dL (0.15-1.2); Total Protein 7.8 g/dL (6.6-8.7)
[2022-05-04 19:36] VITALS: O2SAT 97
[2022-05-04 19:49] LABS: Add Urine Microscopic? NO; Charge for UA Resulting for Rev
[2022-05-04 19:58] LABS: Bilirubin Urine Neg (Negative); Blood Urine Neg (Negative); Glucose Urine UA Norm (Normal); Ketones Urine Negative (Negative); Leukocyte Esterase Urine Negative (Negative); Nitrate Urine Negative (Negative); Protein Urine Neg (Negative); Urine Appearance Clear (CLEAR); Urine Color Yellow (Yellow); Urobilinogen Urine Norm (Negative); pH Urine 5 (5-7)
[2022-05-04 20:00] VITALS: BP 114/74; O2SAT 97
[2022-05-04] MEDS: metoclopramide 5 mg/mL SDV 2 mL 10 MG IVP (20:54)
--- NOTE | 2022-05-04 21:34 | PC.NURSE ---
Patient sent home with [place] and nausea med per order.
[2022-05-04 21:46] VITALS: BP 119/73; PULSE 97; RESP 14; O2SAT 97
--- NOTE | 2022-05-05 11:24 | DCPLANNER ---
Addendum entered by Rosalinda Weaver 06/10/22 17:10: manager market research was sent the following messages regarding patients referral to general surgery: Patient's number on file is no longer in service and no answer on her contact number.. I am mailing a letter & will also include financial assistance paperwork due to her large bill On 05/12/22 @ 14:20 Flor Rojas Wrote To Computer Engineering Technologist Front Off . On 05/12/22 @ 12:35 Kaila Burgos Wrote To Flor Rojas I think this is for surgical consultant. On 05/11/22 @ 15:51 Flor oRjas Wrote To Dr. Cobb Clinical . On 05/11/22 @ 09:03 Francia Shirley Wrote To Computer Engineering Technologist Front Off unable to leave message 05/11 On 05/06/22 @ 10:26 Francia Shirley Wrote To Computer Engineering Technologist Front Off Spoke to patient and transferred her down to speak to Anabelle Hays Note: manager market research had message to schedule a follow up appointment for patient with general surgery. manager market research sent patients information to the front office staff at general surgery. Patients information will be printed and reviewed. Clinic will call patient with appointment information.
== END 2022-05-04 22:14 | disposition home or self-care (01) ==
PROVIDERS: Emergency Medicine; Emergency Provider Physician Assistant; PCP Nurse Practitioner Family
DX: K83.9 Disease of biliary tract, unspecified (principal); R10.84 Generalized abdominal pain
CPT/HCPCS: 76705; 80053; 81003; 83690; 85025; 96361; 96374; 96375; 96376; 99284; J2270; J2405; J2765; J7030

== ENCOUNTER → 2022-07-05 14:18 | Outpatient (BNVA) | payer MEDICAID, SELFPAY | PROVIDERS: PCP Nurse Practitioner Family; Visit Provider Surgery | DX: K52.9 Noninfective gastroenteritis and colitis, unspecified (principal); K80.50 Calculus of bile duct without cholangitis or cholecystitis without obstruction; Z86.010 Personal history of colon polyps; R10.11 Right upper quadrant pain; Z12.11 Encounter for screening for malignant neoplasm of colon | CPT/HCPCS: 99213 ==

== ENCOUNTER 2022-07-07 10:13 | Outpatient (CLI) | payer MEDICAID, SELFPAY ==
--- NOTE | 2022-07-07 10:14 | NM_ITS ---
WS: [id number] NUCLEAR MEDICINE HIDA SCAN CLINICAL INFORMATION: abd pain TECHNIQUE: Following intravenous administration of 7.6 mCi of technetium 99m mebrofenin, images of th e abdomen were obtained over the course of 60 minutes. Next, gallbladder ejection fraction was determ ined by obtaining preprandial and one-hour postprandial images of the gallbladder following oral miller stion of Ensure. COMPARISON: Ultrasound May 04, 2022 FINDINGS: Normal hepatic uptake at 5 minutes. Normal hepatic excretion. Gallbladder is visualized by 10 minutes . No evidence of acute cholecystitis. Normal common bile duct and small bowel activity. Gallbladder ejection fraction 99% within normal limits. No evidence of chronic cholecystitis. NM/NM hepatobiliary w phar* [id number] IMPRESSION: 1. No evidence of acute or chronic cholecystitis. 2. Gallbladder ejection fraction 99% within normal limits
== END 2022-07-07 10:14 | disposition home or self-care (01) ==
PROVIDERS: PCP Nurse Practitioner Family; Visit Provider Nurse Practitioner Family
DX: R10.9 Unspecified abdominal pain (principal)
CPT/HCPCS: 78227; A9537

== ENCOUNTER 2022-09-29 23:17 | Emergency (ER) | payer OTHER, MEDICAID, SELFPAY ==
[2022-09-29 23:30] VITALS: BP 105/55; PULSE 82; RESP 16; TEMP 36.6; O2SAT 99; BMI 28.3
[2022-09-29 23:36] VITALS: BP 105/55; PULSE 79; RESP 16; O2SAT 97
--- NOTE | 2022-09-29 23:37 | ECG_ITS ---
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 Measurements Intervals [place] Rate: 78 P: 21 OR: 161 QRS: 9 QRSD: 90 T: 43 QT: 410 QTc: 469 Interpretive Statements SINUS RHYTHM MODERATE VOLTAGE CRITERIA FOR LVH, CONSIDER NORMAL VARIANT [MEETS CRITERIA IN ONE OF: R(aVL), S(V1), R(V5), R(V5/V6)+S(V1)] Possible INFERIOR MYOCARDIAL INFARCTION , PROBABLY OLD [40+ ms Q WAVE AND/OR ST/T ABNORMALITY IN II/aVF] Compared to ECG 05/03/2022 09:19:44 Myocardial infarct finding possibly present Electronically Signed On 09-30-2022 15:01:53 SHOT HOLE SHOOTER by Dakota Vazquez M.D. [id number]
--- NOTE | 2022-09-29 23:43 | W.ED.ABDPA2 ---
HPI - Abdominal Pain General: Chief Complaint: Abdominal Pain Stated Complaint: N/V/D Time Seen by Provider: 09/29/22 23:17 Source: patient Mode of arrival: ambulatory Limitations: no limitations History of Present Illness: 57-year-old female who states she has been having nausea vomiting or diarrhea since Tuesday she is also had some abdominal cramping that radiated into her chest. She denies any fever states she had a lot of belching as well she has a history of reflux she is in no distress currently she rates her pain an 3 out of 10. Associated Symptoms: Reports diarrhea, nausea and vomiting; Denies chills, dysuria and fever(s) Review of Systems Const: Denies: fever(s), chills, body aches or change in appetite Eyes: Denies: blurry vision or eye discomfort ENMT: Denies: throat pain or dental pain Card: Denies: chest pain Resp: Denies: dyspnea GI: Reports: abdominal pain, nausea, vomiting and diarrhea : Denies: dysuria Musc: Denies: neck pain or back pain Skin/Breast: Denies: rash Neuro: Denies: headache(s) Psych: Denies: depression [place]/Lymph: Denies: easy bruising All/Imm: Denies: urticaria PFSH ED PFSH: Medical History Hypertension Psychiatric care Surgical History H/O: hysterectomy History of Social History Smoking and tobacco status: former smoker Quit status (tobacco): has quit using tobacco Year quit tobacco: 1985 Second hand smoke exposure: Yes Physical Exam Const: COMMON NORMALS: no acute distress, patient oriented x3 and healthy appearing HENMT: COMMON NORMALS: normocephalic and atraumatic HEAD & SCALP: normocephalic and atraumatic Eye: COMMON NORMALS: Equal, round and reactive pupils present and EOMs intact bilaterally PUPIL: Yes Equal, round and reactive pupils present Neck/C-Spine: COMMON NORMALS: full ROM and supple Chest: COMMONS NORMALS: normal inspection of the chest and normal palpation of entire chest wall Resp: COMMON NORMALS: normal respiratory effort, No retractions, No use of accessory muscles and clear to auscultation bilaterally AUSCULTATION: clear to auscultation bilaterally Cardio: COMMON NORMALS: regular rate, regular rhythm and No murmurs present (Cardio) RATE: regular rate RHYTHM: regular rhythm GI: COMMON NORMALS: Normal to inspection, nondistended, normoactive bowel sounds present, Soft to palpation, non-tender and no masses PALPATION: Yes Soft to palpation Extremity: COMMON NORMALS: normal to inspection and full ROM Neuro: COMMON NORMALS: patient oriented x3, moves all extremities and no focal motor deficits Psych: COMMON NORMALS: mental status grossly normal, Normal thought process present and cooperative THOUGHT PROCESS: Normal thought process present Skin: COMMON NORMALS: no rashes or lesions noted and no wounds GENERAL SKIN EXAM: no rashes or lesions noted Course Vital Signs: Vital signs: Vital Signs Temperature 97.8 F 09/29/22 23:30 Pulse Rate 79 09/29/22 23:36 Respiratory Rate 16 09/29/22 23:36 Blood Pressure 105/55 09/29/22 23:36 Pulse Oximetry 97 09/29/22 23:36 Oxygen Delivery Me thod 09/29/22 23:36 MDM - Abdominal Pain Medical Decision Making Patient presents here with abdominal pain along with vomiting diarrhea that she feels much improved here we will place her on Protonix and Zofran blood work is normal abdominal exam is benign she has no signs of acute surgical abdomen. Lab Data : 09/30/22 00:18 09/30/22 00:18 Labs/Radiology: Laboratory Results WBC 8.7 10^3/uL (4.0-10.0) 09/30/22 00:18 RBC 5.20 10^6/uL (4.1-5.3) 09/30/22 00:18 Hgb 14.8 g/dL (11.5-15.3) 09/30/22 00:18 Hct 46.8 % (37.0-47.0) 09/30/22 00:18 MCV 90.0 fl (81-99) 09/30/22 00:18 MCH 28.5 pg (28.0-34.0) 09/30/22 00:18 MCHC 31.6 g/dL (30.0-36.0) 09/30/22 00:18 RDW 14.5 % (12.1-15.1) 09/30/22 00:18 Plt Count 291 10^3/cmm (130-400) 09/30/22 00:18 MPV 11.1 fL (7.4-10.4) H 09/30/22 00:18 Neut % (Auto) 82.6 % 09/30/22 00:18 Lymph % (Auto) 3.6 % 09/30/22 00:18 [place] % (Auto) 10.7 % 09/30/22 00:18 Eos % (Auto) 2.5 % 09/30/22 00:18 Baso % (Auto) 0.3 % 09/30/22 00:18 Neut # (Auto) 7.16 10^3/uL (1.8-7.7) 09/30/22 00:18 Lymph # (Auto) 0.3 10^3/uL (0.8-4.8) L 09/30/22 00:18 [place] # (Auto) 0.9 10^3/uL (0.2-0.9) 09/30/22 00:18 Eos # (Auto) 0.2 10^3/uL (0.0-0.8) 09/30/22 00:18 Baso # (Auto) 0.0 10^3/uL (0.0-0.1) 09/30/22 00:18 Nucleated RBC % (auto) 0 % 09/30/22 00:18 Nucleated RBCs # 0.0 /100WBC 09/30/22 00:18 Sodium 137 mmol/L (136-145) 09/30/22 00:18 Potassium 4.9 mmol/L (3.5-5.1) 09/30/22 00:18 Chloride 99 mmol/L (98-107) 09/30/22 00:18 Carbon Dioxide 23 mmol/L (22-29) 09/30/22 00:18 Anion Gap 19.9 (5-19) H 09/30/22 00:18 BUN 21 mg/dL (6-20) H 09/30/22 00:18 Creatinine 1.0 mg/dL (0.5-0.9) H 09/30/22 00:18 GFR Calculation 57.6 mL/min (90-130) L 09/30/22 00:18 Glucose 170 mg/dL (65-115) H 09/30/22 00:18 Calculated Osmolality 291 mOsm/kg (285-295) 09/30/22 00:18 Calcium 10.0 mg/dL (8.5-10.5) 09/30/22 00:18 Total Bilirubin 0.6 mg/dL (0.15-1.2) 09/30/22 00:18 AST 18 U/L (0-32) 09/30/22:18 ALT 15 U/L (0-33) 09/30/22 00:18 Alkaline Phosphatase 125 U/L (35-105) H 09/30/22 00:18 Troponin T Baseline 9 ng/L (0-10) 09/30/22 00:18 Total Protein 8.7 g/dL (6.6-8.7) 09/30/22 00:18 Albumin 5.0 g/dL (3.5-5.2) 09/30/22:18 Globulin 3.7 g/dL (1.3-4.6) 09/30/22 00:18 Lipase 75 U/L (13-60) H 09/30/22 00:18 Urine Color Yellow (Yellow) 09/30/22 00:40 Urine Appearance Clear (CLEAR) 09/30/22 00:40 Urine pH 5 (5-7) 09/30/22 00:40 Ur Specific [place] 1.020 (1.005-1.030) 09/30/22 00:40 Urine Protein 1+ (Negative) H 09/30/22 00:40 Urine Glucose (UA) Norm (Normal) 09/30/22 00:40 Urine Ketones Negative (Negative) 09/30/22 00:40 Urine Blood Neg (Negative) 09/30/22 00:40 Urine Nitrate Negative (Negative) 09/30/22 00:40 Urine Bilirubin 1+ (Negative) H 09/30/22 00:40 Urine Urobilinogen Norm mg/dL (Negative) 09/30/22 00:40 Ur Leukocyte Esterase Negative (Negative) 09/30/22 00:40 Urine RBC None /hpf (0-2) 09/30/22 00:40 Urine WBC None /hpf (0-5) 09/30/22 00:40 Ur Squamous Epith Cells 0-4 /hpf (0-5) H 09/30/22 00:40 Ur Renal Epithelial Cell 0-2 /hpf 09/30/22 00:40 Amorphous Sediment 1+ /hpf 09/30/22 00:40 Urine Bacteria Trace /hpf (NONE) 09/30/22 00:40 Hyaline Casts 10-15 /lpf H 09/30/22 00:40 EKG Data EKG 1: I personally reviewed and interpreted this EKG as follows: EKG interpretation date: 09/29/22 EKG interpretation time: 23:41 Interpretation: nsr hr [address] or t wave abnormalities qrs 90 tc 444 Discharge Plan Discharge Patient Disposition: Home Clinical Impression: Abdominal pain Qualifiers: Abdominal location: epigastric Qualified Code(s): R10.13 - Epigastric pain Condition: Stable Prescriptions: New Protonix 40 mg tablet,delayed release (DR/EC) 40 mg PO DAILY Qty: 60 0RF ondansetron 4 mg tablet,disintegrating 4 mg PO Q6H PRN (Reason: nausea and vomiting) Qty: 14 0RF No Action citalopram 20 mg tablet 20 mg PO DAILY lactulose 10 gram/15 mL (15 mL) solution 15 ml PO BID 7 Days Qty: 210 0RF Rx Instructions: take for 7 days prior to colonoscopy peg 3350-electrolytes [Golytely] 236-22.74-6.74 -5.86 gram recon soln 240 ml PO Q10M Qty: 4000 0RF Rx Instructions: until fecal effluent is clear multivitamin Tablet 1 tab PO DAILY cyclobenzaprine [Flexeril] 10 mg Tablet 10 mg PO BID PRN (Reason: Muscle Spasm) pantoprazole [Protonix] 20 mg Tablet,Delayed Release (Dr/Ec) 20 mg PO QAM gabapentin 300 mg Capsule 300 mg PO TID lovastatin 20 mg Tablet 20 mg PO BEDTIME oxybutynin chloride 5 mg Tablet See Rx Instructions .ROUTE .COMPLEX Rx Instructions: 5mg po qam and 10mg po bedtime lisinopril 40 mg tablet 20 mg PO BID naproxen 500 mg tablet 500 mg PO BID PRN (Reason: Pain) metoprolol tartrate 25 mg tablet 25 mg PO BID vitamin E 1 cap PO QAM aspirin 81 mg tablet,delayed release (DR/EC) 81 mg PO DAILY PRN (Reason: Pain) Discharge Orders: Discharge ED (Routine); Ordered 09/30/22 Ordered By: Julisa Felipe Referrals: Ned Danielle [Primary Care Provider] - 1-3 days Discharge Diet: Advance as tolerated Discharge Activity: Resume usual activity Patient Instructions: Abdominal Pain (ED) Coding Level of Care Code ED Groundskeeping Maintenance Worker for Chg Fwd Exam Comprehensive
[2022-09-29] MEDS: pantoprazole 40 mg SDV IVP (23:55)
[2022-09-29] MEDS: sodium chloride 0.9% 1,000 ML 999 ML IV (23:55)
[2022-09-29] MEDS: ondansetron 2 mg/ML SDV 2 mL 4 MG IVP (23:55)
[2022-09-30 00:38] LABS: Basophils % 0.3 %; Eosinophils # 0.2 10^3/uL (0.0-0.8); Eosinophils % 2.5 %; Hematocrit 46.8 % (37.0-47.0); Hemoglobin 14.8 g/dL (11.5-15.3); Lymphocytes # 0.3 10^3/uL (0.8-4.8); Lymphocytes % 3.6 %; Mean Corpuscular HGB Conc 31.6 g/dL (30.0-36.0); Mean Corpuscular Hemoglobin 28.5 pg (28.0-34.0); Mean Platelet Volume 11.1 fL (7.4-10.4); Monocytes # 0.9 10^3/uL (0.2-0.9); Monocytes % 10.7 %; Neutrophils # 7.16 10^3/uL (1.8-7.7); Neutrophils % 82.6 %; Nucleated Red Blood Cells % 0 %; Platelet Count 291 10^3/cmm (130-400); Red Cell Distribution Width 14.5 % (12.1-15.1); White Blood Count 8.7 10^3/uL (4.0-10.0)
[2022-09-30 00:57] LABS: Alanine Aminotransferase 15 U/L (0-33); Alkaline Phosphatase 125 U/L (35-105); Anion Gap 19.9 (5-19); Aspartate Amino Transferase 18 U/L (0-32); Blood Urea Nitrogen 21 mg/dL (6-20); Carbon Dioxide 23 mmol/L (22-29); Chloride 99 mmol/L (98-107); Globulin 3.7 g/dL (1.3-4.6); Glomerular Filtration Rate 57.6 mL/min (90-130); Glucose 170 mg/dL (65-115); Lipase 75 U/L (13-60); Osmolality Calculated 291 mOsm/kg (285-295); Potassium 4.9 mmol/L (3.5-5.1); Sodium 137 mmol/L (136-145); Total Bilirubin 0.6 mg/dL (0.15-1.2); Total Protein 8.7 g/dL (6.6-8.7)
[2022-09-30 00:58] LABS: Troponin(5th) Baseline 9 ng/L (0-10)
[2022-09-30 01:09] LABS: Creatinine Clr Calc Pharmacy 65.2702
[2022-09-30 01:10] LABS: Add Urine Culture? No; Add Urine Microscopic? YES; Amorphous Sediment Urine 1+ /hpf; Bacteria Urine TRACE /hpf; Bilirubin Urine 1+ (Negative); Blood Urine Neg (Negative); Glucose Urine UA Norm (Normal); Ketones Urine Negative (Negative); Leukocyte Esterase Urine Negative (Negative); Nitrate Urine Negative (Negative); Protein Urine 1+ (Negative); Renal Epithelial Cells Urine 0-2 /hpf; Squamous Epithelial Cell Urine 0-4 /hpf (0-5); Urine Appearance Clear (CLEAR); Urine Color Yellow (Yellow); Urobilinogen Urine Norm (Negative); pH Urine 5 (5-7)
[2022-09-30 01:31] VITALS: BP 118/69; PULSE 80; RESP 15; O2SAT 97
[2022-09-30 02:06] VITALS: BP 118/69; PULSE 80; RESP 15; O2SAT 97
== END 2022-09-30 02:11 | disposition home or self-care (01) ==
PROVIDERS: Emergency Provider Emergency Medicine; PCP Nurse Practitioner Family
DX: R10.13 Epigastric pain (principal); Z79.82 Long term (current) use of aspirin; I10 Essential (primary) hypertension; Z87.891 Personal history of nicotine dependence
CPT/HCPCS: 80053; 81001; 83690; 84484; 85025; 93005; 96361; 96374; 96375; 99284; C9113; J2405; J7030

== ENCOUNTER 2022-11-22 15:29 | Outpatient (CLI) | payer MEDICAID, SELFPAY ==
--- NOTE | 2022-11-22 | USCV_ITS ---
Alisia Garcia Age: 57 Gender: F : 1965 Exam Date: 11/22/2022 15:46 Ordering Phys: Trinh Nguyen MD ([email or web address]) Technologist: Miley Hatch Exam Location: [facility] [place] Indication: CHEST PAIN AND SOB BP: 140 / 88 HR: 65 Rhythm: Sinus Technical Quality: Adequate MEASUREMENTS (Male / Female) Normal Values 2D ECHO LV Diastolic Diameter PLAX 4.1 cm 4.2 - 5.9 / 3.9 - 5.3 cm LV Systolic Diameter PLAX 2.9 cm LV Chamber Size 4.0 cm IVS Diastolic Thickness 1.4 cm 0.6 - 1.0 / 0.6 - 0.9 cm IVS Systolic Thickness 1.3 cm LVPW Diastolic Thickness 1.3 cm 0.6 - 1.0 / 0.6 - 0.9 cm LVPW Systolic Thickness 1.4 cm RV Chamber Size 3.6 cm LVOT Diameter 2.0 cm LV Ejection Fraction 2D Teich 53.7 % LV Ejection Fraction MOD 2C 54.3 % LV Ejection Fraction 2C AL 54.6 % LA Diameter 3.5 cm LA Width 3.6 cm LA Height 3.7 cm RA Width 3.4 cm RA Height 4.7 cm Aorta at Sinotubular Diameter 2.6 cm IVC Diameter 1.2 cm M-MODE Aortic Annulus Diameter 3.9 cm LA Ao Ratio MM 1.0 MV E Point Septal Separation 0.7 cm DOPPLER AV Peak Velocity 166.0 cm/s LVOT Peak Velocity 105.7 cm/s AV Area Cont Eq vti 2.2 cm squared AV Area Cont Eq pk 2.0 cm squared MV Area PHT 3.0 cm squared Mitral E to A Ratio 0.8 MV E' Velocity 39.0 cm/s Mitral E to MV E' Ratio 15.2 Mitral E to LV E' Lateral Ratio 16.9 Mitral E to LV E' Septal Ratio 13.8 TR Peak Velocity 253.1 cm/s TR Peak Gradient 25.6 mmHg TR Mean Velocity 194.3 cm/s TR Mean Gradient 16.8 mmHg TR Velocity Time Integral 68.2 cm TV Peak E Velocity 49.0 cm/s Right Atrial Pressure 3.0 mmHg Pulmonary Artery Systolic Pressu 28.6 mmHg RV Acceleration Time 0.1 s RV Ejection Time 0.3 s RV AcT/ET 0.3 FINDINGS Left Ventricle Normal left ventricular size and systolic function, EF55%. No regional wall motion abnormalities. Mild left ventricular hypertrophy. Grade I/IV diastolic dysfunction (abnormal relaxation filling pattern), normal to mildly elevated filling pressures. Right Ventricle The right ventricle is normal in size and function. Right Atrium The right atrium is normal in size. Left Atrium The left atrium is normal in size. Mitral Valve Trace mitral valve regurgitation. Aortic Valve No gross abnormalities noted Tricuspid Valve Trace to mild tricuspid valve regurgitation. Pulmonic Valve No gross abnormalities noted Pericardium No pericardial effusion. Aorta Normal aortic annulus size. IVC The inferior vena cava appears normal. CONCLUSIONS Normal left ventricular size and systolic function, EF55%. No regional wall motion abnormalities. Mild left ventricular hypertrophy. Grade I/IV diastolic dysfunction (abnormal relaxation filling pattern), normal to mildly elevated filling pressures. Trace to mild tricuspid valve regurgitation. There is no pericardial effusion. There are no intracardiac masses. Estimated pulmonary artery peak systolic pressure 29 mmHg No similar previous studies are available for comparison Dr Trinh Nguyen MD FAC (Electronically Signed) Final Date: 22 November 2022 17:30 S
== END 2022-11-22 15:30 | disposition home or self-care (01) ==
LOC: RAD 15:30
PROVIDERS: PCP Nurse Practitioner Family; Visit Provider Internal Medicine Cardiovascular Disease
DX: R07.9 Chest pain, unspecified (principal); R06.02 Shortness of breath; I07.1 Rheumatic tricuspid insufficiency
CPT/HCPCS: 93306

== ENCOUNTER → 2023-02-15 13:21 | Outpatient (BNVA) | payer MEDICAID, SELFPAY | PROVIDERS: PCP Nurse Practitioner Family; Referring Provider Registered Nurse; Visit Provider Orthopaedic Surgery | DX: M47.812 Spondylosis without myelopathy or radiculopathy, cervical region (principal) | CPT/HCPCS: 72050 ==

== ENCOUNTER 2023-03-09 11:21 | Outpatient (CLI) | payer MEDICAID, SELFPAY ==
--- NOTE | 2023-03-09 11:45 | MR_ITS ---
WS: [id number] MRI CERVICAL SPINE NONCONTRAST TECHNIQUE: Sagittal T1, T2 and STIR imaging. Axial T2, gradient, and fiesta imaging. CLINICAL INFORMATION: neck pain COMPARISON: CT December 30, 2022 FINDINGS: Straightening of the normal cervical lordosis. Disc bulging worse at the C4-C5, C5-C6 and C6-C7. Cord signal is normal. Previous described cystic change involving the LEFT C7 facet with associated air l ikely degenerative. Additional similar-appearing smaller subchondral degenerative cysts throughout th e posterior elements. C2-C3: Mild facet arthropathy. Mild LEFT foraminal narrowing. Spinal canal is patent. C3-C4: Moderate facet arthropathy. Mild LEFT and no significant RIGHT foraminal narrowing. Spinal can al is patent. C4-C5: Shallow central disc protrusion. Moderate central canal stenosis and slight indentation on cer vical cord. Cord signal remains normal. Mild to moderate bilateral foraminal narrowing RIGHT greater than LEFT. Moderate facet arthropathy. C5-C6: Mild disc osteophytic ridging. Spinal canal is patent. Moderate facet arthropathy. Mild LEFT a nd no significant RIGHT foraminal narrowing. C6-C7: No significant disc bulging. Mild disc osteophytic ridging. Mild LEFT and no significant RIGHT foraminal narrowing. Moderate facet arthropathy. C7-T1: Spinal canal and foramen are patent. Small amount of edema in the C4-C5 facets compatible with mild synovitis likely degenerative. Tiny fa cet effusions. Visualized brain stem structures: Normal. Prevertebral soft tissues: Normal. MR/MR cervical spin wo con* [id number] IMPRESSION: 1. Straightening of the normal cervical lordosis. Central disc protrusion C4-C 5 with moderate central canal stenosis with indentation and flattening of the c ervical cord. Cord signal remains normal. 2. Mild to moderate bony foraminal narrowing worse at RIGHT C4-C5, C5 LEFT C5 -C6, 3. Small amount of facet synovitis C4-C5 likely degenerative. Small facet effu sions. 4. Moderate facet arthropathy LEFT C3-C4, bilateral C4-C5, and bilateral C5-C6 .
== END 2023-03-09 11:22 | disposition home or self-care (01) ==
LOC: RAD 11:24
PROVIDERS: PCP Nurse Practitioner Family; Visit Provider Orthopaedic Surgery
DX: M47.812 Spondylosis without myelopathy or radiculopathy, cervical region (principal); M50.221 Other cervical disc displacement at C4-C5 level; N94.10 Unspecified dyspareunia; Z90.710 Acquired absence of both cervix and uterus
CPT/HCPCS: 72141; 76830

== ENCOUNTER 2025-10-07 16:10 | Emergency (ER) | payer MEDICAID, SELFPAY ==
--- NOTE | 2025-10-07 15:55 | XRR_ITS ---
PROCEDURE INFORMATION: Exam: XR Chest Exam date and time: 10/07/2025 4:19 PM Age: 60 years old Clinical indication: Pain; Angina pectoris; Additional info: Chest pain TECHNIQUE: Imaging protocol: Radiologic exam of the chest. Views: 1 view. COMPARISON: CR XR chest 1V portable [id number] 11/29/2019 9:53 PM FINDINGS: Lungs: Unremarkable. No consolidation. Pleural spaces: Unremarkable. No pleural effusion. No pneumothorax. Heart/Mediastinum: Cardiomegaly. Mediastinal size is normal. Bones/joints: Unremarkable. XR/XR chest 1V portable [id number] IMPRESSION: Cardiomegaly.
[2025-10-07 16:11] VITALS: BP 116/74; PULSE 73; RESP 18; TEMP 36.7; O2SAT 94; BMI 26.6
--- NOTE | 2025-10-07 16:20 | ECG_ITS ---
[facility] Test Date: 2025-10-07 Pat Name: Alisia Garcia Department: Room: Gender: Female Classification And Treatment Director: : 1965 Requested By: Mau Mendez Order Number: [id number] Gavino MD: Trinh Nguyen M.D. Measurements Intervals [place] Rate: 65 P: 39 FL: 173 QRS: 13 QRSD: 96 T: 43 QT: 401 QTc: 419 Interpretive Statements SINUS RHYTHM MODERATE VOLTAGE CRITERIA FOR LVH, CONSIDER NORMAL VARIANT [MEETS CRITERIA IN ONE OF: R(aVL), S(V1), R(V5), R(V5/V6)+S(V1)] Compared to ECG 09/29/2022 23:41:02 nondiagnostic T wave changes Myocardial infarct finding no longer present Electronically Signed On 10-09-2025 09:47:12 [employer]ISH [employer] by Trinh Nguyen M.D. [email or web address]
--- NOTE | 2025-10-07 16:22 | W.ED.CHESTPA ---
HPI - Chest Pain General: Chief Complaint: Chest Pain Stated Complaint: chest pain x1 week Time Seen by Provider: 10/07/25 16:11 History of Present Illness: 60-year-old female with a history of hypertension, hyperlipidemia, polysubstance abuse, anxiety depression with psychosis and she reports chronic pancreatitis who presents to the emergency room by ambulance with chest pain. She says she feels inflamed in her abdomen but she has been having sharp pains in her chest that radiate into her left arm for which she called an ambulance. Says this chest pains been going on for about a week. Sharp central chest radiating to the left arm. Worse with exertion. No cough. No fever. No vomiting. Related Data Home Medications ?Medication ?Instructions ?Recorded ?Confirmed cyclobenzaprine 10 mg tablet 10 mg PO BID PRN Muscle Spasm 05/03/22 04/03/24 gabapentin 300 mg capsule 300 mg PO TID 05/03/22 04/03/24 lisinopril 40 mg tablet 20 mg PO BID 05/03/22 04/03/24 lovastatin 20 mg tablet 20 mg PO BEDTIME 05/03/22 04/03/24 metoprolol tartrate 25 mg tablet 25 mg PO BID 05/03/22 04/03/24 multivitamin 1 tab PO DAILY 05/03/22 04/03/24 naproxen 500 mg tablet 500 mg PO BID PRN Pain 05/03/22 04/03/24 oxybutynin chloride 5 mg tablet See Rx Instructions .Route .COMPLEX 05/03/22 04/03/24 pantoprazole 20 mg tablet,delayed 20 mg PO QAM 05/03/22 04/03/24 release (Protonix) vitamin E 1 cap PO QAM 05/03/22 04/03/24 citalopram 20 mg tablet 20 mg PO DAILY 07/05/22 04/03/24 Previous Rx's ?Medication ?Instructions ?Recorded diazepam 5 mg tablet (Valium) 5 mg PO ONCE PRN anxiety 1 day #1 03/09/23 tab Allergies Allergy/AdvReac Type Severity Reaction Status Date / Time clindamycin Allergy Intermediate swelling Verified 10/05/24 09:43 amlodipine (From [facility]) Allergy rash Verified 03/21/23 10:41 amoxicillin Allergy ALGY-Rash Verified 03/21/23 10:41 Sulfa (Sulfonamide Allergy rash Verified 03/21/23 10:41 Antibiotics) ceftriaxone AdvReac Intermediate hypotension Verified 10/05/24 09:43 cephalexin AdvReac Intermediate N/V Verified 03/21/23 10:41 sumatriptan (From Imitrex) AdvReac Intermediate rash Verified 03/21/23 10:41 Review of Systems Narrative: Constitutional symptoms: Negative except as documented in HPI. Skin symptoms: Negative except as documented in HPI. Eye symptoms: Negative except as documented in HPI. ENMT symptoms: Negative except as documented in HPI. Respiratory symptoms: Negative except as documented in HPI. Cardiovascular symptoms: Negative except as documented in HPI. Gastrointestinal symptoms: Negative except as documented in HPI. Genitourinary symptoms: Negative except as documented in HPI. Musculoskeletal symptoms: Negative except as documented in HPI. Neurologic symptoms: Negative except as documented in HPI. Psychiatric symptoms: Negative except as documented in HPI. Endocrine symptoms: Negative except as documented in HPI. PFSH ED PFSH: Medical History (Updated 10/07/25 @ 17:54 by Rowan Hagen MD) Hypertension Surgical History H/O: hysterectomy History of Family History Sister Cancer Diabetes Mother CAD (coronary artery disease) Diabetes Father CAD (coronary artery disease) Dementia Diabetes Lung disease Family/Other CAD (coronary artery disease) Suicide Sister Cancer Denies family history of Colon cancer Ovarian cancer Hypercholesteremia Breast cancer Hypertension Uterine cancer Thyroid disease Stroke Physical Exam Narrative: EXAM NARRATIVE: General: Alert, no acute distress. Skin: Warm, dry. Head: Normocephalic, atraumatic. Neck: Supple, trachea midline. Eye: Extraocular movements are intact. Ears, nose, mouth and throat: mucosa moist. Cardiovascular: Regular, Normal peripheral perfusion. Respiratory: Lungs are clear to auscultation, respirations are non-labored, breath sounds are equal, Symmetrical chest wall expansion. Gastrointestinal: Soft, Nontender, Non distended Musculoskeletal: Normal ROM, no deformity. Neurological: Alert and oriented, No focal neurological deficit observed. Psychiatric: Cooperative, appropriate mood & affect. Course Vital Signs: Vital signs: Vital Signs Temperature 98.1 F 10/07/25 16:11 Pulse Rate 63 10/07/25 17:34 Respiratory Rate 14 10/07/25 17:34 Blood Pressure 125/72 10/07/25 17:34 Pulse Oximetry 98 10/07/25 17:34 Oxygen Delivery Me thod Room Air 10/07/25 16:11 MDM - Chest Pain Medical Decision Making Medical decision making Patient's reason for coming to the emergency room: Chest pain Social determinants: Patient is unemployed I reviewed the patient's medical record. 60-year-old female with a history of hypertension, hyperlipidemia, polysubstance abuse, anxiety depression with psychosis and she reports chronic pancreatitis I reviewed the patient's current home meds Patient on lovastatin, metoprolol and lisinopril. Also on diazepam Alternate historians: None Differential diagnosis for patient with chest pain includes but is not limited to and based on the above HPI, review of systems and physical exam: Pneumonia. unstable angina. angina. Acute coronary syndrome / [place]. Pulmonary embolism. Costochondritis / musculoskeletal. Pleurisy. Pericarditis. Esophageal spasm. Pancreatitis. Cholecystitis. Orders placed to evaluate differential diagnosis based on the above differential, HPI and physical exam EKG: Time 1620. Rate 65. Normal sinus rhythm, No ST-T changes, no ectopy, normal IA & QRS intervals, This was reviewed and interpreted by myself the ER physician at 1624 Chest x-ray: No acute process. No infiltrate. No pneumothorax. This was reviewed and interpreted by myself the emergency room physician. I also reviewed the radiology report. Lab Review: Laboratory results were reviewed and interpreted by myself the emergency room physician. No leukocytosis. No anemia. No renal failure. troponin negative. Lipase is negative. Assessment of risk: Level of risk: Moderate risk. Hospitalization considerations: Did consider hospitalization but heart score is 2 so she is safe to go home. Clinical decision support: Heart score of 2. Reexamination: Patient remained stable. No increased work of breathing. No altered mental status. No focal motor deficits. Assessment and plan: Chest pain ?Morphine and Zofran in the emergency room - Discharged home - Discussed plan with patient. Answered any questions. - Evaluation and treatment of this problem were appropriate in the emergency setting. Lab Data 10/07/25 16:16 10/07/25 16:16 Radiology Impressions Chest X-Ray 10/07/25 15:55 IMPRESSION: Cardiomegaly. Laboratory Results WBC 5.81 10^3/uL (3.29-11.43) 10/07/25 16:16 RBC 4.23 10^6/uL (3.85-5.65) 10/07/25 16:16 Hgb 12.20 g/dL (11.27-16.99) 10/07/25 16:16 Hct 37.3 % (36-47) 10/07/25 16:16 MCV 88.2 fl (85-98) 10/07/25 16:16 MCH 28.8 pg (27-33) 10/07/25 16:16 MCHC 32.7 g/dL (30-55) 10/07/25 16:16 RDW 13.5 % (12.1-15.1) 10/07/25 16:16 Plt Count 207 10^3/cmm (157-399) 10/07/25 16:16 MPV 10.3 fL (7.4-10.4) 10/07/25 16:16 Neut % (Auto) 40.7 % 10/07/25 16:16 Lymph % (Auto) 24.8 % 10/07/25 16:16 [place] % (Auto) 11.2 % 10/07/25 16:16 Eos % (Auto) 22.4 % 10/07/25 16:16 Baso % (Auto) 0.7 % 10/07/25 16:16 Neut # (Auto) 2.37 10^3/uL (1.8-7.7) 10/07/25 16:16 Lymph # (Auto) 1.4 10^3/uL (0.8-4.8) 10/07/25 16:16 Chester # (Auto) 0.7 10^3/uL (0.2-0.9) 10/07/25 16:16 Eos # (Auto) 1.3 10^3/uL (0.0-0.8) H 10/07/25 16:16 Baso # (Auto) 0.0 10^3/uL (0.0-0.1) 10/07/25 16:16 Nucleated RBC % (auto) 0 % 10/07/25 16:16 Nucleated RBCs # 0.0 /100WBC 10/07/25 16:16 PT 12.80 SECONDS (12.1-14.9) 10/07/25 16:16 INR 0.90 (0.8-1.2) 10/07/25 16:16 APTT 29.5 SECONDS (23.9-36.7) 10/07/25 16:16 Sodium 138 mmol/L (136-145) 10/07/25 16:16 Potassium 4.2 mmol/L (3.5-5.1) 10/07/25 16:16 Chloride 104 mmol/L (98-107) 10/07/25 16:16 Carbon Dioxide 25 mmol/L (22-29) 10/07/25 16:16 Anion Gap 13.2 (5-19) 10/07/25 16:16 BUN 15 mg/dL (6-20) 10/07/25 16:16 Creatinine 0.8 mg/dL (0.5-0.9) 10/07/25 16:16 GFR Calculation 73.7 mL/min (90-130) L 10/07/25 16:16 Glucose 201 mg/dL (65-115) H 10/07/25 16:16 Calculated Osmolality 293 mOsm/kg (285-295) 10/07/25 16:16 Calcium 8.6 mg/dL (8.5-10.5) 10/07/25 16:16 Total Bilirubin 0.3 mg/dL (0.15-1.2) 10/07/25 16:16 AST 15 U/L (0-32) 10/07/25 16:16 ALT 13 U/L (0-33) 10/07/25 16:16 Alkaline Phosphatase 119 U/L (35-105) H 10/07/25 16:16 Troponin T Baseline 10 ng/L (0-10) 10/07/25 16:16 NT-Pro-B Natriuret Pep 142 pg/mL (0-125) H 10/07/25 16:16 Total Protein 6.8 g/dL (6.6-8.7) 10/07/25 16:16 Albumin 4.2 g/dL (3.5-5.2) 10/07/25 16:16 Globulin 2.6 g/dL (1.3-4.6) 10/07/25 16:16 Lipase 20 U/L (13-60) 10/07/25 16:16 All radiology interpretation(s) finalized by discharge Clincial Decision Support The following clinical decision support tools were used to aid in care of the patient HEART Score -> History: Slightly Suspicous, EKG: Normal, Age: 45-64 yrs, Risk Factors: 1 or 2 Risk Factors, Troponin: Baseline Trop <16 ng/L. Resulting HEART Score: 2. Discharge Plan Discharge Patient Disposition: Home Clinical Impression: Non-cardiac chest pain Condition: Stable Prescriptions: No Action citalopram 20 mg tablet 20 mg PO DAILY diazepam [Valium] 5 mg tablet 5 mg PO ONCE PRN (Reason: anxiety) 1 Days Qty: 1 0RF multivitamin Tablet 1 tab PO DAILY cyclobenzaprine [Flexeril] 10 mg Tablet 10 mg PO BID PRN (Reason: Muscle Spasm) pantoprazole [Protonix] 20 mg Tablet,Delayed Release (Dr/Ec) 20 mg PO QAM gabapentin 300 mg Capsule 300 mg PO TID lovastatin 20 mg Tablet 20 mg PO BEDTIME oxybutynin chloride 5 mg Tablet See Rx Instructions .ROUTE .COMPLEX Rx Instructions: 5mg po qam and 10mg po bedtime lisinopril 40 mg tablet 20 mg PO BID naproxen 500 mg tablet 500 mg PO BID PRN (Reason: Pain) metoprolol tartrate 25 mg tablet 25 mg PO BID vitamin E 1 cap PO QAM Discharge Orders: Discharge ED (Routine); Ordered 10/07/25 Ordered By: Rowan Hagen Referrals: Farnaz Kern FNP [Primary Care Provider, Family Practice] Discharge Diet: Usual diet Discharge Activity: Increase activity as tolerated Patient Instructions: Chest Pain (ED), Opioid Safety, Pain Management, Patient Portal & Rhonda Instructions Activity Restrictions/Additional Instructions: Thank you for choosing [facility] for your healthcare needs today. You have been screened and evaluated and felt safe for discharge. Health conditions do change or evolve sometimes and as such it is important that you follow up with your Primary Doctor to be re checked, 3-5 days is a general good time frame for follow up. You are always welcome to return to the ED for re assessment if your symptoms are worsening or you have new concerns Print Language: Senegalese Coding Level of Care Code ED Heel Se[employer]ber for Jaren Fwanthony Heart Score HEART Score Components History: Slightly Suspicous EKG: Normal Age: 45-64 yrs Risk Factors: 1 or 2 Risk Factors Troponin: Baseline Trop <16 ng/L HEART Score RESULT HEART Score: 2
[2025-10-07 16:23] LABS: Hematocrit 37.3 % (36-47); Hemoglobin 12.20 g/dL (11.27-16.99); Mean Corpuscular HGB Conc 32.7 g/dL (30-55); Mean Corpuscular Hemoglobin 28.8 pg (27-33); Mean Corpuscular Volume 88.2 fl (85-98); Nucleated Red Blood Cells % 0 %; Platelet Count 207 10^3/cmm (157-399); Red Blood Count 4.23 10^6/uL (3.85-5.65); White Blood Count 5.81 10^3/uL (3.29-11.43)
[2025-10-07 16:46] LABS: INR 0.90 (0.8-1.2); Prothrombin Time 12.80 SECONDS (12.1-14.9)
[2025-10-07 16:47] LABS: Partial Thromboplastin Time 29.5 SECONDS (23.9-36.7)
[2025-10-07 17:04] LABS: Troponin(5th) Baseline 10 ng/L (0-10)
[2025-10-07 17:15] LABS: Alanine Aminotransferase 13 U/L (0-33); Albumin Level 4.2 g/dL (3.5-5.2); Aspartate Amino Transferase 15 U/L (0-32); Calcium 8.6 mg/dL (8.5-10.5); Carbon Dioxide 25 mmol/L (22-29); Chloride 104 mmol/L (98-107); Globulin 2.6 g/dL (1.3-4.6); Lipase 20 U/L (13-60); Osmolality Calculated 293 mOsm/kg (285-295); Sodium 138 mmol/L (136-145); Total Protein 6.8 g/dL (6.6-8.7)
[2025-10-07 17:16] LABS: Alkaline Phosphatase 119 U/L (35-105); Glucose 201 mg/dL (65-115); NT Pro B Type Natriuretic Pept 142 pg/mL (0-125)
[2025-10-07 17:17] LABS: Anion Gap 13.2 (5-19); Potassium 4.2 mmol/L (3.5-5.1)
[2025-10-07 17:18] LABS: Blood Urea Nitrogen 15 mg/dL (6-20)
[2025-10-07 17:34] VITALS: BP 125/72; PULSE 63; RESP 14; O2SAT 98
--- NOTE | 2025-10-07 17:35 | ECG_ITS ---
[facility]25[facility]07 Pat Name: Alisia Garcia Department: Room: Gender: Female [employer] Analyst: : 1965 Requested By: Rowan Mendez Order Number: [id number] Gavino MD: Trinh Nguyen M.D. Measurements Intervals [place] Rate: 62 P: 40 SD: 171 QRS: 17 QRSD: 105 T: 38 QT: 424 QTc: 431 Interpretive Statements SINUS RHYTHM MODERATE VOLTAGE CRITERIA FOR LVH, CONSIDER NORMAL VARIANT [MEETS CRITERIA IN ONE OF: R(aVL), S(V1), R(V5), R(V5/V6)+S(V1)] Compared to ECG 10/07/2025 16:20:50 No significant changes Electronically Signed On 10-10-2025 00:22:32 TRUCK PACKER by Trinh Nguyen M.D. [email or web address]
--- NOTE | 2025-10-07 17:58 | PC.NURSE ---
[facility] declined d/t pt being T1DB
[2025-10-07 18:12] VITALS: RESP 18; O2SAT 97
[2025-10-07] MEDS: ondansetron 2 mg/ML SDV 2 mL 4 MG IVP (18:12)
[2025-10-07] MEDS: morphine 4 mg/mL SDV 1 mL IVP (18:12)
[2025-10-07 18:40] LABS: Troponin 5 2HR 9.57 ng/L (0-10)
[2025-10-07 18:43] LABS: Troponin 5 2HR Delta -0.43 ABS# (0-10)
[2025-10-07 19:15] VITALS: BP 126/57; PULSE 64
[2025-10-07 19:16] VITALS: BP 128/55; PULSE 69; O2SAT 97
== END 2025-10-07 19:21 | disposition home or self-care (01) ==
PROVIDERS: Emergency Provider Emergency Medicine; PCP Nurse Practitioner Family
DX: R07.89 Other chest pain (principal); I10 Essential (primary) hypertension
CPT/HCPCS: 36415; 71045; 80053; 83690; 83880; 84484; 85025; 85610; 85730; 93005; 96374; 96375; 99285; J2270; J2405